=== PATIENT | male | born 1945 | race Caucasian/White ===

== ENCOUNTER 2021-07-08 15:13 | Inpatient (IN) | payer MEDICARE, OTHER ==
[~2021-07-08] VITALS: Ht 172.7 cm; Wt 81.6 kg
[2021-07-08] MEDS ORDERED: NALOXONE PREFILLED SYRINGE 2 MG/2 ML SYRINGE ONE (15:17)
[2021-07-08] MEDS ORDERED: NALOXONE HCL 0.4 MG/ML AMPUL ONE (15:18)
--- NOTE | 2021-07-08 15:25 | NUR ---
PT BIBRA FROM HOME TO ER BED 01, PER EMS REPORT PT WAS FOUND BY FAMILY MEMBER ALTERED, UNRESPONSIVE. ACCUCHECK WAS DONE READING HIGH ON BRUSH WORKER GLUCOMETER. GOWNED PLACED ON MONITOR. 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 PLACED ON NON REBREATHER MASK. DR TAY AT BEDSIDE W/ ORDERS. WILL CARRY OUT.
[2021-07-08] MEDS ORDERED: IV NS 0.9% 1,000 ML BAG IV ONE ×2 (15:30)
[2021-07-08] MEDS ORDERED: NALOXONE HCL 0.4 MG/ML AMPUL IV ONE (15:30)
[2021-07-08 15:41] LABS: ABG BASE EXCESS -25.9 mmol/L; ABG PCO2 24.9 mmHg (35.0-45.0); ABG PH 6.943 (7.350-7.450); ABG PO2 69.7 mmHg (75.0-100.0); COHb 0.3 % (0.5-1.5); MetHb 0.3 % (0.0-1.5); O2Hb 89.1 % (94.0-97.0); SITE, ABG Right Radial; VENT MODE, BG 10 minutes on 4 lpm NC
[2021-07-08 15:48] LABS: BASOPHILS % (AUTO) 0.2 % (0.0-2.0); HEMATOCRIT 46 % (39-51); HEMOGLOBIN 14.2 g/dL (13.5-17.5); LYMPHOCYTES # (AUTO) 0.7 K/uL (0.8-4.8); LYMPHOCYTES % (AUTO) 3.9 % (20.0-44.0); MEAN CORPUSCULAR HGB CONC 31 g/dl (31.0-36.0); MEAN CORPUSCULAR VOLUME 92 fL (80-96); MONOCYTES # (AUTO) 0.9 K/uL (0.1-1.30); MONOCYTES % (AUTO) 5.1 % (2.0-12.0); NEUTROPHILS # (AUTO) 15.3 K/uL (1.8-8.9); NEUTROPHILS % (AUTO) 90.8 % (43.0-81.0); PLATELET COUNT (AUTO) 529 K/uL (150-450); RED BLOOD CELL COUNT(AUTO) 5.04 MIL/uL (4.5-6.0); WHITE BLOOD COUNT (AUTO) 16.9 K/uL (4.3-11.0)
[2021-07-08 15:51] LABS: SERUM AMMONIA 9 umol/L (11-32)
--- NOTE | 2021-07-08 15:54 | NUR ---
PT TO RADIOLOGY FOR HEAD CT SCAN VIA [facility].
[2021-07-08 16:04] LABS: THYROID STIMULATING HORMONE 0.776 uIU/mL (0.358-3.74)
--- NOTE | 2021-07-08 16:10 | NUR ---
PT RETURNED FROM CT SCAN.
[2021-07-08 16:14] LABS: CALCIUM, SERUM 8.3 mg/dL (8.5-10.1); CHLORIDE 105 mmol/L (98-107); CREATININE 2.4 mg/dL (0.6-1.3); POTASSIUM 4.6 mmol/L (3.5-5.1); SODIUM SERUM 146 mmol/L (136-145); UREA NITROGEN, BLOOD 38 mg/dL (7-18)
[2021-07-08 16:16] LABS: CARBON DIOXIDE 8 mmol/L (21-32); GLUCOSE 639 mg/dL (74-106)
[2021-07-08 16:18] LABS: BILIRUBIN,TOTAL 0.5 mg/dL (0.2-1.0)
[2021-07-08 16:19] LABS: ACETAMINOPHEN < 0 ug/ml (10-30); ALANINE AMINOTRANSFERASE 13 U/L (12-78); ALBUMIN 1.8 g/dL (3.4-5.0); ALCOHOL, BLOOD < 3 mg/dL (0-0); ALKALINE PHOSPHATASE 157 U/L (46-116); ASPARTATE AMINOTRANSFERASE 19 U/L (15-37); BILIRUBIN,DIRECT 0.2 mg/dL (0.0-0.2); TOTAL PROTEIN, SERUM 6.7 g/dL (6.4-8.2)
[2021-07-08] MEDS ORDERED: INSULIN REGULAR, HUMAN 100 UNITS in IV NS 0.9% 100 ML IV PRN (16:30)
[2021-07-08] MEDS ORDERED: IV PREMIX NS +20MEQ KCL 1,000 L IV PRN (16:30)
--- NOTE | 2021-07-08 16:42 | NUR ---
COVID ANTIGEN SWAB COLLECTED AND GIVE TO LAB
[2021-07-08 17:25] LABS: CALCIUM, SERUM 7.1 mg/dL (8.5-10.1); CHLORIDE 111 mmol/L (98-107); CREATININE 2.1 mg/dL (0.6-1.3); POTASSIUM 4.4 mmol/L (3.5-5.1); SODIUM SERUM 148 mmol/L (136-145); UREA NITROGEN, BLOOD 36 mg/dL (7-18)
[2021-07-08 17:27] LABS: CARBON DIOXIDE 10 mmol/L (21-32); GLUCOSE 554 mg/dL (74-106)
[2021-07-08 17:29] LABS: MAGNESIUM 2.6 mg/dL (1.8-2.4); PHOSPHORUS 8.4 mg/dL (2.5-4.9)
[2021-07-08] MEDS ORDERED: MAGNESIUM HYDROXIDE 30 ML UDC PO PRN (17:30)
[2021-07-08] MEDS ORDERED: ONDANSETRON HCL/PF 4 MG/2 ML VIAL IVP PRN (17:30)
[2021-07-08] MEDS ORDERED: IV NS 0.9% 1,000 ML IV PRN ×2 (17:30→17:40)
[2021-07-08] MEDS ORDERED: ACETAMINOPHEN 325 MG TABLET PO PRN (17:30)
[2021-07-08] MEDS ORDERED: ENOXAPARIN SODIUM 40 MG/0.4 ML DISP.SYRIN SQ SCH (17:30)
[2021-07-08] MEDS ORDERED: CEFEPIME 1 GM in IV D5W 50 ML IV SCH (17:30)
[2021-07-08] MEDS ORDERED: MAG HYDROX/AL HYDROX/SIMETH 30 ML UDC PO PRN (17:30)
[2021-07-08] MEDS ORDERED: LORAZEPAM INJ 2 MG/ML VIAL IV PRN (17:30)
[2021-07-08] MEDS ORDERED: MORPHINE SULFATE INJ 2 MG/ML DISP.SYRIN IV PRN (17:30)
--- NOTE | 2021-07-08 17:37 | NUR ---
PHOSPHORUS 8.4; NOTIFIED SHELLY MCDANIELS
[2021-07-08 17:54] LABS: BILIRUBIN,URINE SMALL (NEGATIVE); COLOR,URINE YELLOW (YELLOW); LEUKOCYTE ESTERASE ,URINE NEGATIVE (NEGATIVE); NITRITE, URINE NEGATIVE (NEGATIVE); PH,URINE 5.5 (5.0-8.0); PROTEIN,URINE 30 mg/dl (NEGATIVE); UGLUCOSE >=1000 mg/dL (NEGATIVE); UROBILINOGEN,URINE 0.2 EU/dL (0.2)
[2021-07-08] MEDS ORDERED: PANTOPRAZOLE 40 MG VIAL ONE (17:56)
[2021-07-08] MEDS: PANTOPRAZOLE 40 MG VIAL IV SCH (17:57)
--- NOTE | 2021-07-08 18:00 | NUR ---
U/S TECH AT BEDSIDE FOR RENAL ULTRASOUND
[2021-07-08 18:22] LABS: BACTERIA,URINE Moderate /HPF (None Seen); HYALINE CASTS, URINE Moderate /LPF (None Seen); SQUAMOUS EPITHELIAL CELL,UR Few /HPF (None Seen); WBC,URINE 0-2 /HPF (0-3)
[2021-07-08] MEDS ORDERED: Z GUARD REMEDY 4 OZ OINT TP PRN (18:30)
[2021-07-08] MEDS ORDERED: CEFEPIME 0.5 GM in IV D5W 50 ML IV SCH (18:30)
[2021-07-08] MEDS ORDERED: CEFEPIME 2 GM in IV D5W 100 ML IV ONE (19:00)
[2021-07-08] MEDS: INSULIN REGULAR, HUMAN 100 UNIT in IV NS 0.9% 99 ML IV PRN (19:22)
--- NOTE | 2021-07-08 19:23 | NUR ---
REPORT GIVEN VITALIY GODFREY FOR MAL.
[2021-07-08 20:29] LABS: CHLORIDE 123 mmol/L (98-107); CREATININE 1.7 mg/dL (0.6-1.3); GLUCOSE 312 mg/dL (74-106); MAGNESIUM 2.1 mg/dL (1.8-2.4); SODIUM SERUM 152 mmol/L (136-145); UREA NITROGEN, BLOOD 35 mg/dL (7-18)
[2021-07-08 20:32] LABS: POTASSIUM 7.2 mmol/L (3.5-5.1)
[2021-07-08 20:33] LABS: CALCIUM, SERUM 5.9 mg/dL (8.5-10.1); CARBON DIOXIDE 7 mmol/L (21-32)
--- NOTE | 2021-07-08 20:33 | NUR ---
CRITICAL: BICARB 7, K+ 7.2, calcium 5.9
--- NOTE | 2021-07-08 20:35 | NUR ---
PAGED DR STEVE FOR CRITICALS
--- NOTE | 2021-07-08 20:55 | NUR ---
DR STEVE RETURNED CALLED, UPDATED ON PT CRITICALS
[2021-07-08] MEDS ORDERED: CEFEPIME 1 GM VIAL ONE (20:59)
[2021-07-08] MEDS ORDERED: HEPARIN SODIUM, PORCINE 5000 UNITS/1 ML VIAL ONE (21:32)
[2021-07-08] MEDS: HEPARIN SODIUM, PORCINE 5000 UNITS/1 ML VIAL SQ SCH (21:34)
[2021-07-08 23:42] LABS: CALCIUM, SERUM 7.5 mg/dL (8.5-10.1); CARBON DIOXIDE 16 mmol/L (21-32); CHLORIDE 120 mmol/L (98-107); CREATININE 2.1 mg/dL (0.6-1.3); GLUCOSE 90 mg/dL (74-106); SODIUM SERUM 155 mmol/L (136-145); UREA NITROGEN, BLOOD 39 mg/dL (7-18)
[2021-07-09] VITALS (16 sets, daily range): BP systolic 81–147; BP diastolic 46–85
--- NOTE | 2021-07-09 01:11 | NUR ---
PT BS NOTED AT 76, STOPPED INSULIN DRIP
[2021-07-09] MEDS ORDERED: IV PREMIX D5 1/2NS + KCL 1,000 ML IV ONE (05:05)
[2021-07-09] MEDS: Potassium Chloride 20 MEQ in IV D5/0.45 NACL 1,000 ML IV PRN ×3 (05:20→19:43)
--- NOTE | 2021-07-09 06:14 | NUR ---
DR. DUGAN ORDERED ABG STAT
[2021-07-09 06:27] LABS: ABG BASE EXCESS -19.6 mmol/L; ABG PCO2 31.1 mmHg (35.0-45.0); ABG PH 7.086 (7.350-7.450); ABG PO2 76.6 mmHg (75.0-100.0); COHb 0.3 % (0.5-1.5); MetHb 0.4 % (0.0-1.5); O2Hb 93.3 % (94.0-97.0); SITE, ABG Left Radial; VENT MODE, BG 15 LNRB
--- NOTE | 2021-07-09 06:32 | NUR ---
PT PULLED OUT HIS BOTH LINES. NEW IV LINE STARTED ON LAC , BLOOD DRAWN AND SENT TO LAB. ANOTHER 20G IV LINE STARTED ON ORTEGA W/ GOOD BLOOD DRAW. PT ALSO NOTD W/ LOW O2 SAT AND INCREASED CIONFUSION. DR DUGAN, ER DR AT BED SIDE SAW THE PT AND ORDERED ABG.
[2021-07-09 06:41] LABS: HEMATOCRIT 42 % (39-51); HEMOGLOBIN 13.3 g/dL (13.5-17.5); LYMPHOCYTES # (AUTO) 0.5 K/uL (0.8-4.8); LYMPHOCYTES % (AUTO) 4.9 % (20.0-44.0); MEAN CORPUSCULAR HGB CONC 32 g/dl (31.0-36.0); MEAN CORPUSCULAR VOLUME 88 fL (80-96); MONOCYTES # (AUTO) 0.5 K/uL (0.1-1.30); MONOCYTES % (AUTO) 4.8 % (2.0-12.0); NEUTROPHILS # (AUTO) 10.1 K/uL (1.8-8.9); NEUTROPHILS % (AUTO) 90.3 % (43.0-81.0); PLATELET COUNT (AUTO) 417 K/uL (150-450); RED BLOOD CELL COUNT(AUTO) 4.75 MIL/uL (4.5-6.0); WHITE BLOOD COUNT (AUTO) 11.2 K/uL (4.3-11.0)
[2021-07-09] MEDS ORDERED: DEXAMETHASONE SOD PHOSPHATE 10 MG/ML VIAL ONE (07:13)
[2021-07-09] MEDS ORDERED: SODIUM BICARBONATE SYR 50 MEQ/50 ML DISP.SYRIN ONE (07:13)
[2021-07-09 07:20] LABS: CALCIUM, SERUM 8.2 mg/dL (8.5-10.1); CARBON DIOXIDE 11 mmol/L (21-32); CHLORIDE 118 mmol/L (98-107); GLUCOSE 147 mg/dL (74-106); MAGNESIUM 2.6 mg/dL (1.8-2.4); POTASSIUM 3.8 mmol/L (3.5-5.1); SODIUM SERUM 154 mmol/L (136-145); UREA NITROGEN, BLOOD 39 mg/dL (7-18)
[2021-07-09] MEDS ORDERED: SODIUM BICARBONATE SYR 50 MEQ/50 ML DISP.SYRIN IV ONE (07:30)
[2021-07-09] MEDS ORDERED: DEXAMETHASONE SOD PHOSPHATE 10 MG/ML VIAL IV ONE (07:30)
[2021-07-09 07:33] LABS: THYROID STIMULATING HORMONE 0.751 uIU/mL (0.358-3.74)
--- NOTE | 2021-07-09 09:02 | NUR ---
ROUSTABOUT HEAD AT BEDSIDE
--- NOTE | 2021-07-09 09:05 | NUR ---
RADIOLOGY AT BEDSIDE
[2021-07-09] MEDS ORDERED: PANTOPRAZOLE 40 MG VIAL ONE (09:06)
[2021-07-09] MEDS ORDERED: HEPARIN SODIUM, PORCINE 5000 UNITS/1 ML VIAL ONE (09:06)
[2021-07-09] MEDS: PANTOPRAZOLE 40 MG VIAL IV SCH (09:28)
[2021-07-09] MEDS: HEPARIN SODIUM, PORCINE 5000 UNITS/1 ML VIAL SQ SCH ×2 (09:31→21:00)
[2021-07-09] MEDS ORDERED: LEVOFLOXACIN 250 MG /D5W 50 ML 250 MG in PREMIX 1 EA IV SCH (10:00)
[2021-07-09 10:28] LABS: ABG BASE EXCESS -10.4 mmol/L; ABG PCO2 31.2 mmHg (35.0-45.0); ABG PH 7.294 (7.350-7.450); ABG PO2 77.4 mmHg (75.0-100.0); COHb 0.3 % (0.5-1.5); MetHb 0.2 % (0.0-1.5); O2Hb 95.8 % (94.0-97.0); SITE, ABG Left Radial; VENT MODE, BG HFNC
[2021-07-09] MEDS ORDERED: LEVOFLOXACIN 750 MG /D5W 150ML 750 MG in PREMIX 1 EA IV SCH (10:30)
--- NOTE | 2021-07-09 10:57 | NUR ---
IV MEDICATIONS INFUSING. PT TOLERATING WELL
--- NOTE | 2021-07-09 10:58 | NUR ---
PT HAS 2 IV LINES. PATENT. MEDICATIONS INFUSING. RAC 18G & LAC 18G
--- NOTE | 2021-07-09 11:55 | NUR ---
REPORT GIVEN TO BEKAH GONZALEZ
--- NOTE | 2021-07-09 12:15 | NUR ---
ADMISSION NOTE PT BROUGHT IN FROM ED VIA GURNEY DISPLAYING MODERATE DISTRESS, PT SEVERELY CONFUSED ON SOFT WRIST RESTRAINTS, STRUGGLING AGAINST STAFF. PT IS BREATHING ON 15L NRB TACHYPNIC. PT TRANSFERRED VIA DRAW SHEET. CRYSTAL CATH AND BEEN DISTRUPTED PRESUMABLY PULLED BY PT, RN WILL CORRECT. PT THEN PLACED ON HIGH FLOW NC, 40/100. R AC L AC 18Gs PATIENT AND INTACT. PT CLEANED, VSS, AFEBRILE. RN WILL START ADMISSION PROCESS SHORTLY.
--- NOTE | 2021-07-09 12:20 | NUR ---
PT TRANSPORTED TO ICU WITH EMT, RN, AND RT
[2021-07-09 12:42] LABS: CALCIUM, SERUM 7.7 mg/dL (8.5-10.1); CARBON DIOXIDE 15 mmol/L (21-32); CHLORIDE 119 mmol/L (98-107); GLUCOSE 134 mg/dL (74-106); POTASSIUM 3.9 mmol/L (3.5-5.1); SODIUM SERUM 153 mmol/L (136-145); UREA NITROGEN, BLOOD 37 mg/dL (7-18)
[2021-07-09 15:53] LABS: CALCIUM, SERUM 7.5 mg/dL (8.5-10.1); CARBON DIOXIDE 16 mmol/L (21-32); CHLORIDE 119 mmol/L (98-107); CREATININE 1.8 mg/dL (0.6-1.3); GLUCOSE 118 mg/dL (74-106); SODIUM SERUM 152 mmol/L (136-145); UREA NITROGEN, BLOOD 37 mg/dL (7-18)
[2021-07-09 17:20] LABS: CALCIUM, SERUM 7.7 mg/dL (8.5-10.1); CARBON DIOXIDE 16 mmol/L (21-32); CHLORIDE 118 mmol/L (98-107); CREATININE 1.8 mg/dL (0.6-1.3); GLUCOSE 151 mg/dL (74-106); POTASSIUM 4.1 mmol/L (3.5-5.1); SODIUM SERUM 151 mmol/L (136-145); UREA NITROGEN, BLOOD 38 mg/dL (7-18)
[2021-07-09] MEDS: BLOOD SUGAR DIAGNOSTIC 1 EACH STRIP IN SCH ×6 (18:12→23:03)
--- NOTE | 2021-07-09 19:20 | NUR ---
RN NOTES PT FOUND SEMI FOWLERS DISPLAYING NO S/S OF ACUTE DISTRESS, PT BREATHING EVEN AND MINIMAL LABOR ON 15L NRB AND HIGH FLOW NC 40/100. PT CONTINUES TO BE CONFUSED BUT NOT RESTLESS. BILATERAL SOFT RESTAINTS APPLIED, PULSES PALPATED AND CAP REFILL < 3 SECONDS BILATERALLY. CRYSTAL CATH BELOW PATIENT DRAINING BY GRAVITY. SBAR AND REPORT GIVEN TO CAFETERIA COOK RN, ALL QUESTIONS ANSWERED. SAFETY MEASURES IN PLACE, BED LOCKED AND IN LOWEST POSITION, SIDE RAILS UPX3, CALL LIGHT WITHIN REACH, BED ALARM ARMED. PT ENDORSED IN STABLE CONDITION FOR MAL.
[2021-07-09] MEDS: CEFEPIME 1 GM in IV D5W 50 ML IV SCH (19:43)
--- NOTE | 2021-07-09 23:42 | NUR ---
RN NOTE CALLED LAB REGARDING NO RESULT FOR BMP FROM 2099, SPOKE WITH NICKI WHO IS STILL RUNNING THEM NO RESULTS AT THIS TIME
[2021-07-09 23:55] LABS: CALCIUM, SERUM 7.6 mg/dL (8.5-10.1); CARBON DIOXIDE 16 mmol/L (21-32); CHLORIDE 118 mmol/L (98-107); GLUCOSE 211 mg/dL (74-106); POTASSIUM 4.2 mmol/L (3.5-5.1); SODIUM SERUM 150 mmol/L (136-145)
[2021-07-09 23:56] LABS: CREATININE 1.8 mg/dL (0.6-1.3); UREA NITROGEN, BLOOD 36 mg/dL (7-18)
[2021-07-10] VITALS (36 sets, daily range): BP systolic 58–136; BP diastolic 40–93
[2021-07-10] MEDS: BLOOD SUGAR DIAGNOSTIC 1 EACH STRIP IN SCH ×13 (00:08→18:07)
[2021-07-10] MEDS ORDERED: ACETAMINOPHEN 650 MG/SUPP.RECT RC PRN (00:30)
[2021-07-10] MEDS: INSULIN REGULAR, HUMAN 100 UNIT in IV NS 0.9% 99 ML IV PRN (01:37)
[2021-07-10 02:11] LABS: CALCIUM, SERUM 7.7 mg/dL (8.5-10.1); CARBON DIOXIDE 20 mmol/L (21-32); CHLORIDE 119 mmol/L (98-107); CREATININE 1.8 mg/dL (0.6-1.3); GLUCOSE 209 mg/dL (74-106); POTASSIUM 3.9 mmol/L (3.5-5.1); SODIUM SERUM 152 mmol/L (136-145); UREA NITROGEN, BLOOD 34 mg/dL (7-18)
--- NOTE | 2021-07-10 03:30 | NUR ---
TITRATE O2 TO 80% , BEKAH BOSE NOTIFIED. SPO2 97%, WILL CONTINUE TO MONITOR T/O SHIFT
--- NOTE | 2021-07-10 03:30 | NUR ---
RN NOTE-RT PT TITRATED FIO2 80% PT HAS BEEN SATURATING 95-100% CONSISTENTLY
[2021-07-10] MEDS: Potassium Chloride 20 MEQ in IV D5/0.45 NACL 1,000 ML IV PRN ×2 (03:57→15:10)
[2021-07-10] MEDS ORDERED: INSULIN REGULAR, HUMAN 100 UNIT/ML 3 ML VIAL ONE (04:29)
--- NOTE | 2021-07-10 04:30 | NUR ---
INCREASED O2 BACK TO 100% DUE TO DESATURATION W/ THE SPO2 OF 78% . BEKAH BOSE AWARE. WILL CONTINUE TO MONITOR PT T/O SHIFT
[2021-07-10 05:20] LABS: BASOPHILS % (AUTO) 0.2 % (0.0-2.0); EOSINOPHILS % (AUTO) 0.1 % (0.0-6.0); HEMATOCRIT 39 % (39-51); HEMOGLOBIN 12.7 g/dL (13.5-17.5); LYMPHOCYTES # (AUTO) 0.6 K/uL (0.8-4.8); LYMPHOCYTES % (AUTO) 4.4 % (20.0-44.0); MEAN CORPUSCULAR HGB CONC 33 g/dl (31.0-36.0); MEAN CORPUSCULAR VOLUME 86 fL (80-96); MONOCYTES # (AUTO) 0.2 K/uL (0.1-1.30); MONOCYTES % (AUTO) 1.8 % (2.0-12.0); NEUTROPHILS # (AUTO) 12.7 K/uL (1.8-8.9); NEUTROPHILS % (AUTO) 93.5 % (43.0-81.0); PLATELET COUNT (AUTO) 315 K/uL (150-450); RED BLOOD CELL COUNT(AUTO) 4.54 MIL/uL (4.5-6.0); WHITE BLOOD COUNT (AUTO) 13.6 K/uL (4.3-11.0)
[2021-07-10 05:37] LABS: CALCIUM, SERUM 7.8 mg/dL (8.5-10.1); CARBON DIOXIDE 13 mmol/L (21-32); CHLORIDE 120 mmol/L (98-107); CREATININE 1.6 mg/dL (0.6-1.3); GLUCOSE 142 mg/dL (74-106); SODIUM SERUM 149 mmol/L (136-145); UREA NITROGEN, BLOOD 32 mg/dL (7-18)
--- NOTE | 2021-07-10 06:46 | NUR ---
RN NOTE CLOSING PT HAD 2 EPISODES THIS SHIFT DESATURATING TO 80%. AT THIS TIME PT REMAINS ON 40L 100% O2 SAT 88% PT LYING ON RIGHT SIDE. STILL REMAINS SINUS TACH 118 AND TACHYPNEIC. PT STILL ON INSULIN DRIP DKA PROTOCOL USING ALGORITHM #2 ORDERED. PT ANION GAP IS 21, PT RECEIVING FLUIDS D51/2 NS WITH 20MEQ KCL. NO S/S OF INFILTRATION. PT NEEDS ATTENDED. SAFETY MEASURES IN PLACE. WILL ENDORSE TO DAY SHIFT FOR CONTINUATION OF CARE
--- NOTE | 2021-07-10 07:27 | NUR ---
WOUND CARE CONSULT: REVIEWED CHART, NURSING DOCUMENTATION AND PHOTOS WHICH INDICATE DRY ABRASIONS AND SCABS, PRESENT ON ADMISSION. RECOMMENDATIONS MADE FOR SKIN PROTECTION. DISCUSSED WITH NURSING STAFF. MD IN AGREEMENT WITH PLAN OF CARE.
--- NOTE | 2021-07-10 07:30 | NUR ---
RN NOTES PT FOUND SEMI FOWLERS DISPLAYING NO S/S OF ACUTE DISTRESS, PT BREATHING EVEN AND MINIMAL LABOR ON 15L NRB AND HIGH FLOW NC 40/100. CONFUSION CONTINUES, RESTLESS REDUCED. BILATERAL SOFT RESTAINTS APPLIED, PULSES PALPATED AND CAP REFILL < 3 SECONDS BILATERALLY. CRYSTAL CATH BELOW PATIENT DRAINING BY GRAVITY. VSS, RN WILL MONITOR AND TREAT THROUGHOUT SHIFT. SAFETY MEASURES IN PLACE, BED LOCKED AND IN LOWEST POSITION, SIDE RAILS UPX3, CALL LIGHT WITHIN REACH, BED ALARM ARMED. PT ENDORSED IN STABLE CONDITION FOR MAL.
--- NOTE | 2021-07-10 07:50 | NUR ---
MD VISIT DR MELTON DID ROUNDS. RN SPOKE TO MD ABOUT PLAN OF CARE MOVING FORWARD. MD GAVE ORDERS: REDUCE D5 KCL 1/2NS FROM 150ML/HR TO 100 ML/HR. RN ACKNOWLEDGE AND WILL ENTER ORDER DIRECTED.
[2021-07-10 08:41] LABS: BAND % (MANUAL) 23 % (0.0-5.0); LYMPHOCYTES % (MANUAL) 7 % (16-48); METAMYELOCYTES % 4 % (0-0); MONOCYTES % (MANUAL) 2 % (0-11.0); MYELOCYTES % 2 % (0-0); NEUTROPHILS % (MANUAL) 62 (42-76)
[2021-07-10 09:06] LABS: ABG BASE EXCESS -7.7 mmol/L; ABG OXYGEN SATURATION 91.3 % (92.0-98.5); ABG PCO2 34.3 mmHg (35.0-45.0); ABG PH 7.323 (7.350-7.450); ABG PO2 59.1 mmHg (75.0-100.0); AaDO2 619.6 mmHg; MetHb 0.1 % (0.0-1.5); O2Hb 91.2 % (94.0-97.0); SITE, ABG Right Radial; VENT MODE, BG HFNC 100% + NRB
[2021-07-10] MEDS: DEXAMETHASONE SOD PHOSPHATE 10 MG/ML VIAL IV SCH (09:14)
[2021-07-10] MEDS: PANTOPRAZOLE 40 MG VIAL IV SCH (09:14)
[2021-07-10] MEDS: HEPARIN SODIUM, PORCINE 5000 UNITS/1 ML VIAL SQ SCH ×2 (09:19→20:31)
[2021-07-10 09:57] LABS: CARBON DIOXIDE 20 mmol/L (21-32); CHLORIDE 120 mmol/L (98-107); CREATININE 1.7 mg/dL (0.6-1.3); GLUCOSE 175 mg/dL (74-106); POTASSIUM 3.9 mmol/L (3.5-5.1); SODIUM SERUM 150 mmol/L (136-145); UREA NITROGEN, BLOOD 32 mg/dL (7-18)
--- NOTE | 2021-07-10 10:00 | NUR ---
RN NOTE TRAIL RUN OF SOFT RESTAINTS REMOVAL STARTED. PT IS CALM AND COOPERATIVE.
--- NOTE | 2021-07-10 11:00 | NUR ---
MD COMMUNICATION RN INFORMED DR MELTON OF CLOSED ANION GAP (11.4). GAVE ORDERS, D/C INSULIN DRIP, MODERATE ISS Q6H. RN ACKNOWLEDGED AND WILL ENTER ORDERS DIRECTED.
[2021-07-10] MEDS ORDERED: DEXTROSE 50%-WATER 50 ML DISP.SYRIN IV PRN (11:30)
[2021-07-10] MEDS: INSULIN REGULAR, HUMAN 100 UNIT/ML 3 ML VIAL SQ PRN ×2 (12:42→18:12)
--- NOTE | 2021-07-10 15:29 | NUR ---
SS consult requested. SW will follow up at a later time.
--- NOTE | 2021-07-10 17:00 | NUR ---
RN NOTE PT FOUND REMOVING RNB, THIS WAS AFTER PT WAS PREVIOUSLY WARNED THAT ONE MORE REMOVAL WOULD RESULT IN REAPPLICATION OF SOFT WRISTS. BILATERAL SOFT WRISTS APPLIED, PULSES PALPATED AND CAP REFILL < 3 SECONDS BILATERALLY. Addendum: 07/10/21 at 1922 by LISA RYAN RN NRB, NOT RNB
--- NOTE | 2021-07-10 19:20 | NUR ---
RN NOTES PT FOUND SEMI FOWLERS DISPLAYING NO S/S OF ACUTE DISTRESS, PT BREATHING EVEN AND MINIMAL LABOR ON 15L NRB AND HIGH FLOW NC 40/100. CONFUSION CONTINUES. BILATERAL SOFT RESTAINTS APPLIED, PULSES PALPATED AND CAP REFILL < 3 SECONDS BILATERALLY. CRYSTAL CATH BELOW PATIENT DRAINING BY GRAVITY. SBAR AND REPORT GIVEN TO VICE CHANCELLOR RN, ALL QUESTIONS ANSWERED. SAFETY MEASURES IN PLACE, BED LOCKED AND IN LOWEST POSITION, SIDE RAILS UPX3, CALL LIGHT WITHIN REACH, BED ALARM ARMED. PT ENDORSED IN STABLE CONDITION FOR MAL.
--- NOTE | 2021-07-10 20:00 | NUR ---
ICU NOTES Received patient awake alert non verbal restless on HF 40L 100% FIO2 and 15L NRB mask tachypiec 29-hi 30's.Desat to low 80's.Tachycardic 100's.Afebrile.Turned and repositioned semi fowlers.With bilateral soft wrist restraints on for safety.Patient tried to remove NRB mask and NC.FC to gravity.NPO status.IVF infusing well.Continue monitoring.
[2021-07-10] MEDS: CEFEPIME 1 GM in IV D5W 50 ML IV SCH (20:30)
[2021-07-10 22:24] LABS: ABG BASE EXCESS -8.2 mmol/L; ABG PCO2 41.5 mmHg (35.0-45.0); ABG PH 7.263 (7.350-7.450); ABG PO2 39.2 mmHg (75.0-100.0); AaDO2 632.3 mmHg; COHb 0.1 % (0.5-1.5); MetHb 0.3 % (0.0-1.5); O2Hb 75.7 % (94.0-97.0); SITE, ABG Right Radial; VENT MODE, BG HF+NONREBREATHER
--- NOTE | 2021-07-10 22:45 | NUR ---
ICU NOTES Patient remains restless,tachycardic 120's,tachypniec 50's and desaturating to low 70's. ABG done results relayed to with order to intubate.ABG'S pH=7.263,pCO2= 41.5, pO2= 39.2,HCO3= 18.3 Prep for intubation.
--- NOTE | 2021-07-10 23:08 | NUR ---
ICU NOTES 2303 Patient premedicated with Rocuronium 80 mg and Etomidate 8 mg iv. 2308 Patient intubated by .Stat CXR ordered.
--- NOTE | 2021-07-10 23:08 | NUR ---
DUE TO POST ABG, PT WAS ORALLY INTUBATED WITH 7.5 ETT SECURED @ 24 CM LIP LINE ON VENT WITH THE SETTINGS OF AC 20, VT 500, PEEP 5, FIO2 100%. POSITVE COLOR CHANGED ON CO2 DETECTOR. EQUAL BILATERAL CHEST RISE NOTED. SUCTIONED SMALL AMOUNT OF WHITE THIN SECRETIONS. VENT PLUGGED INTO RED OUTLET, VENT ALARMS ON AND AUDIBLE. WILL CONTINUE TO MONITOR T/O THE SHIFT.
[2021-07-10] MEDS: PROPOFOL 100 ML IV PRN (23:30)
[2021-07-11] VITALS (88 sets, daily range): BP systolic 53–122; BP diastolic 21–78
[2021-07-11] MEDS: BLOOD SUGAR DIAGNOSTIC 1 EACH STRIP IN SCH ×4 (00:03→18:40)
[2021-07-11] MEDS: INSULIN REGULAR, HUMAN 100 UNIT/ML 3 ML VIAL SQ PRN ×4 (00:05→18:40)
--- NOTE | 2021-07-11 00:26 | NUR ---
POST INTUBATION , ABG DONE . RESULT GIVEN TO BEKAH WELLS
[2021-07-11 01:47] LABS: ABG PCO2 51.2 mmHg (35.0-45.0); ABG PH 7.194 (7.350-7.450); ABG PO2 60.1 mmHg (75.0-100.0); AaDO2 601.7 mmHg; COHb 0.2 % (0.5-1.5); MetHb 0.2 % (0.0-1.5); O2Hb 89.6 % (94.0-97.0); PEEP,BG 5 cm H2O; SITE, ABG Right Radial; VT, ABG 500 mL
[2021-07-11] MEDS: Potassium Chloride 20 MEQ in IV D5/0.45 NACL 1,000 ML IV PRN ×2 (02:17→16:33)
[2021-07-11] MEDS ORDERED: PHENYLEPHRINE 10 MG/ML VIAL ONE (02:46)
[2021-07-11] MEDS: PHENYLEPHRINE 100 MG in IV NS 0.9% 240 ML IV PRN ×2 (03:08→20:23)
--- NOTE | 2021-07-11 03:10 | NUR ---
ICU NOTES Patient hemodynamically unstable.Started on Erick Synephrine and will titrate accordingly.
--- NOTE | 2021-07-11 03:37 | NUR ---
ICU NOTES Patient ABG results post intubation pH=7.1,pCO2 =51.2,pO2 60.1,HCO3 =19.3 O2 saturation down to mid 80"s AARSLAN Pollard paged at [phone].no response.Called back 2nd time and responded.Notified of above ABG results and BC Gm + in cocci in clusters.Orders received and carried out.
--- NOTE | 2021-07-11 03:59 | NUR ---
INCREASED RESPIRATORY RATE T0 26 PER MD'S ORDER. BEKAH WELLS AWARE. WILL CONTINUE TO MONITOR T/O SHIFT.
[2021-07-11] MEDS ORDERED: VANCOMYCIN HCL 1 GM in IV D5W 260 ML IV ONE (04:00)
[2021-07-11] MEDS ORDERED: VANCOMYCIN 1 GM VIAL ONE (05:11)
[2021-07-11 05:57] LABS: BASOPHILS % (AUTO) 0.1 % (0.0-2.0); HEMATOCRIT 41 % (39-51); LYMPHOCYTES # (AUTO) 0.6 K/uL (0.8-4.8); LYMPHOCYTES % (AUTO) 4.5 % (20.0-44.0); MEAN CORPUSCULAR HGB CONC 32 g/dl (31.0-36.0); MEAN CORPUSCULAR VOLUME 87 fL (80-96); MONOCYTES # (AUTO) 0.2 K/uL (0.1-1.30); MONOCYTES % (AUTO) 1.8 % (2.0-12.0); NEUTROPHILS # (AUTO) 11.9 K/uL (1.8-8.9); NEUTROPHILS % (AUTO) 93.6 % (43.0-81.0); PLATELET COUNT (AUTO) 304 K/uL (150-450); RED BLOOD CELL COUNT(AUTO) 4.71 MIL/uL (4.5-6.0); WHITE BLOOD COUNT (AUTO) 12.7 K/uL (4.3-11.0)
[2021-07-11 05:59] LABS: CARBON DIOXIDE 21 mmol/L (21-32); CHLORIDE 117 mmol/L (98-107); CREATININE 1.8 mg/dL (0.6-1.3); GLUCOSE 290 mg/dL (74-106); POTASSIUM 4.6 mmol/L (3.5-5.1); SODIUM SERUM 148 mmol/L (136-145); UREA NITROGEN, BLOOD 35 mg/dL (7-18)
--- NOTE | 2021-07-11 07:08 | NUR ---
ICU NOTED Patient remains sedated in no acute distress.Bathed and linens changed.Turned and repositioned. Diprivan gtt infusing at 5 mcg,Erick Synephrine gtt at 0.5 mcg and current IVF infusing well.Blood Sugar monitored and coverage given per SS. At 0649 Lab called regarding Lactic Acid 3.5.Paged ARSLAN Lui for orders.Report given to day shift RN for MAL.
--- NOTE | 2021-07-11 07:30 | NUR ---
RN NOTES PT FOUND SEMI FOWLERS DISPLAYING NO S/S OF DISTRESS, FLACC = 0, RIKERS = 3 AND BILATERAL RISE AND FALL OF THE CHEST OBSERVED. PT RESTRAINED, BILATERAL SOFT WRISTS, PULSES PALPATED AND CAP REFILL < 3 SECONDS BILATERALLY. L AC 18G AND R AC 18G IV ARE PATIENT AND INTACT. CRYSTAL CATH BELOW PATIENT DRAINING BY GRAVITY. VSS, RN WILL MONITOR AND TREAT THROUGHOUT SHIFT. SAFETY MEASURES IN PLACE, BED LOCKED AND IN LOWEST POSITION, SIDE RAILS UPX3, CALL LIGHT WITHIN REACH, BED ALARM ARMED.
[2021-07-11] MEDS: DEXAMETHASONE SOD PHOSPHATE 10 MG/ML VIAL IV SCH (08:29)
[2021-07-11] MEDS: PANTOPRAZOLE 40 MG VIAL IV SCH (08:29)
[2021-07-11] MEDS: CEFEPIME 2 GM in IV D5W 100 ML IV SCH ×2 (08:30→20:01)
[2021-07-11] MEDS: HEPARIN SODIUM, PORCINE 5000 UNITS/1 ML VIAL SQ SCH ×2 (08:31→20:30)
[2021-07-11] MEDS ORDERED: ROCURONIUM BROMIDE 50 MG/5 ML IV ONE (09:48)
[2021-07-11] MEDS ORDERED: ETOMIDATE 2 MG/ML VIAL IV ONE (09:48)
[2021-07-11 10:11] LABS: BAND % (MANUAL) 14 % (0.0-5.0); LYMPHOCYTES % (MANUAL) 5 % (16-48); MONOCYTES % (MANUAL) 1 % (0-11.0); NEUTROPHILS % (MANUAL) 80 (42-76)
[2021-07-11] MEDS: PROPOFOL 100 ML IV PRN ×3 (11:58→21:14)
--- NOTE | 2021-07-11 13:05 | NUR ---
SW consult: No Family JAIRO was able to find pt.'s old caregiver contact info [Jayla [phone]], she provided SW with son's contact info [Dylan [phone]]. SW reached out to the contact info provided and left VM.
--- NOTE | 2021-07-11 19:40 | NUR ---
RN NOTES PT FOUND SEMI FOWLERS DISPLAYING NO S/S OF DISTRESS, FLACC = 0, RIKERS = 3 AND BILATERAL RISE AND FALL OF THE CHEST OBSERVED. PT RESTRAINED, BILATERAL SOFT WRISTS, PULSES PALPATED AND CAP REFILL < 3 SECONDS BILATERALLY. L AC 18G AND R AC 18G IV ARE PATIENT AND INTACT. CRYSTAL CATH BELOW PATIENT DRAINING BY GRAVITY. SBAR AND REPORT GIVEN TO IN STORE BANKER RN, ALL QUESTIONS ANSWERED. SAFETY MEASURES IN PLACE, BED LOCKED AND IN LOWEST POSITION, SIDE RAILS UPX3, CALL LIGHT WITHIN REACH, BED ALARM ARMED. PT ENDORSED FOR MAL.
--- NOTE | 2021-07-11 20:00 | NUR ---
ICU NOTES Received patient intubated and sedated on Diprivan gtt at 45 mcg.Continue on same vent settings well tolerated.SR.Afebrile.On MARIVEL Synephrine at 2.4 mcg for BP support and will titrate accordingly. Remain NPO.OGT clamped.Oral care done.IVF infusing well.FC to gravity drainage.Turned and repositioned.No acute distress noted.
[2021-07-11] MEDS ORDERED: VANCOMYCIN 0.75 GM in IV D5W 250 ML IV SCH (23:00)
[2021-07-12] VITALS (93 sets, daily range): BP systolic 94–146; BP diastolic 58–92
[2021-07-12] MEDS: BLOOD SUGAR DIAGNOSTIC 1 EACH STRIP IN SCH ×5 (00:13→23:41)
[2021-07-12] MEDS: INSULIN REGULAR, HUMAN 100 UNIT/ML 3 ML VIAL SQ PRN ×5 (00:14→23:42)
[2021-07-12] MEDS: PROPOFOL 100 ML IV PRN ×5 (02:38→21:31)
[2021-07-12] MEDS: Potassium Chloride 20 MEQ in IV D5/0.45 NACL 1,000 ML IV PRN ×2 (04:35→15:08)
[2021-07-12] MEDS ORDERED: PHENYLEPHRINE 10 MG/ML VIAL ONE (04:39)
[2021-07-12] MEDS: PHENYLEPHRINE 100 MG in IV NS 0.9% 240 ML IV PRN ×2 (05:41→15:14)
--- NOTE | 2021-07-12 06:44 | NUR ---
ICU NOTES Patient remains sedated intubated on same vent settings tolerating well.VSS.SR.Erick Synephrine gtt titarted per protocol.Diprivan gtt and ivf all infusing well.AM care done.FSBS monitored and covered per SS.No acute distress noted.Turned and repositioned.All due medications administered. No significant change noted during the shift.Will endorse to day shift for MAL.
--- NOTE | 2021-07-12 07:40 | NUR ---
ICU NOTES Received patient intubated and sedated. Pt is on Diprivan at 45 mcg tolerating well, no agitation noted. Pt Vent settings changed by RT FiO2-65, toleratedwell. SR.Afebrile. On MARIVEL Synephrine at 2.4 mcg for BP support, will titrate accordingly. Pt remains NPO.OGT clamped. IVF 0.15%K in Db 1/2NS infusing well. FC in place and draining well to gravity drainage.
[2021-07-12] MEDS: CEFEPIME 2 GM in IV D5W 100 ML IV SCH ×2 (08:17→20:01)
[2021-07-12] MEDS: PANTOPRAZOLE 40 MG VIAL IV SCH (08:32)
[2021-07-12] MEDS: DEXAMETHASONE SOD PHOSPHATE 10 MG/ML VIAL IV SCH (08:36)
[2021-07-12] MEDS: HEPARIN SODIUM, PORCINE 5000 UNITS/1 ML VIAL SQ SCH ×2 (08:52→21:38)
[2021-07-12 09:21] LABS: ABG BASE EXCESS -9.7 mmol/L; ABG OXYGEN SATURATION 96.3 % (92.0-98.5); ABG PCO2 30.2 mmHg (35.0-45.0); ABG PH 7.317 (7.350-7.450); ABG PO2 76.7 mmHg (75.0-100.0); AaDO2 353.9 mmHg; COHb 0.3 % (0.5-1.5); MetHb 0.3 % (0.0-1.5); O2Hb 95.7 % (94.0-97.0); PEEP,BG 8 cm H2O; SITE, ABG Right Femoral; VT, ABG 520 mL
--- NOTE | 2021-07-12 12:46 | NUR ---
et tube adjusted from 23 cm to [address] thomas. Addendum: 07/12/21 at 1247 by FELIPE PARDO RT Amended: Links added.
[2021-07-12 19:12] LABS: CALCIUM, SERUM 7.6 mg/dL (8.5-10.1); CARBON DIOXIDE 15 mmol/L (21-32); CHLORIDE 115 mmol/L (98-107); CREATININE 2.5 mg/dL (0.6-1.3); POTASSIUM 4.4 mmol/L (3.5-5.1); SODIUM SERUM 144 mmol/L (136-145); UREA NITROGEN, BLOOD 56 mg/dL (7-18)
[2021-07-12 19:16] LABS: GLUCOSE 354 mg/dL (74-106)
--- NOTE | 2021-07-12 19:46 | NUR ---
ICU NOTES patient intubated and sedated. Pt is on Diprivan at 45 mcg tolerating well, no agitation noted. Pt Vent settings tolerated well. SR.Afebrile. On MARIVEL Synephrine at 2 mcg for BP support titrated from 2.3 from start of shift. endorsed to next shift rn. Pt remains NPO.OGT clamped. IVF 0.15%K in Db 1/2NS infusing well. FC in place and draining well to gravity drainage.
--- NOTE | 2021-07-12 20:00 | NUR ---
ICU NOTES Received patient intubated on mechanical vent.Continue on same vent settings.O2 saturation 93%-98%. VSS.SR.No acute distress noted.Sedated on Diprivan gtt at 45 mcg.IVF D51/2 + kcl 20 meq infusing well and Erick Synephrine for BP support and will titrate accordingly.OGT clamped npo status.FC to gravity drainage.Turned and repositioned.No acute distress noted.Continue monitoring.
--- NOTE | 2021-07-12 20:00 | NUR ---
RN NOTE RECEIVED CALL FROM LAB OF CRITICAL VALUE OF BLOOD GLUCOSE 354MG/DL. PT WAS ALREADY GIVEN 8UNIT OF REGULAR INSULIN. ENDORSED TO NEXT RN. PT IS ON ACCU CHECK Q6HRS.
[2021-07-12] MEDS: INSULIN GLARGINE, 100 UNIT/ML CARTRIDGE SQ SCH (21:37)
[2021-07-12] MEDS ORDERED: SODIUM BICARBONATE SYR 50 MEQ/50 ML DISP.SYRIN ONE (23:40)
[2021-07-12] MEDS: Sodium Bicarbonate 50 MEQ in IV 1/2NS 1000 ML 1,000 ML IV SCH (23:53)
[2021-07-13] VITALS (85 sets, daily range): BP systolic 47–120; BP diastolic 29–77
--- NOTE | 2021-07-13 | NUR ---
ICU NOTES. Patient remains sedated in no acute distress.Tolerating vent settings well.Oral care and secretions suctioned.Turned and repositioned.Blood sugar monitored q 6 hrs cover with RI per SS.
[2021-07-13] MEDS: PROPOFOL 100 ML IV PRN ×5 (02:59→21:16)
[2021-07-13] MEDS: PHENYLEPHRINE 100 MG in IV NS 0.9% 240 ML IV PRN ×2 (04:52→19:45)
[2021-07-13] MEDS: INSULIN REGULAR, HUMAN 100 UNIT/ML 3 ML VIAL SQ PRN (05:27)
[2021-07-13 05:48] LABS: ABG OXYGEN SATURATION 95.3 % (92.0-98.5); ABG PCO2 33.5 mmHg (35.0-45.0); ABG PH 7.304 (7.350-7.450); ABG PO2 73.9 mmHg (75.0-100.0); AaDO2 353.1 mmHg; COHb 0.1 % (0.5-1.5); O2Hb 95.2 % (94.0-97.0); PEEP,BG 8 cm H2O; SITE, ABG Right Radial; VENT MODE, BG AC 30; VT, ABG 520 mL
--- NOTE | 2021-07-13 06:30 | NUR ---
ICU NOTES Patient vital signs remains stable.Due medications adminstered.AM care done.No significant changes noted during the night.Maintained on Diprivan gtt at 45 mcg, NeoSynephrine gtt titrated down to 1.6 mcg and IVF changed to 1/2 NS with 1 amp Sodium Bicarb as ordered.Turned and repositioned to comfort.No acute distress noted. Will endorse to day shift for MAL.
[2021-07-13] MEDS: BLOOD SUGAR DIAGNOSTIC 1 EACH STRIP IN SCH ×4 (06:33→23:24)
[2021-07-13 07:03] LABS: CARBON DIOXIDE 19 mmol/L (21-32); CHLORIDE 116 mmol/L (98-107); CREATININE 2.5 mg/dL (0.6-1.3); GLUCOSE 154 mg/dL (74-106); POTASSIUM 4.4 mmol/L (3.5-5.1); SODIUM SERUM 146 mmol/L (136-145); UREA NITROGEN, BLOOD 51 mg/dL (7-18)
--- NOTE | 2021-07-13 08:00 | NUR ---
RN NOTES SEEN PATIENT ETT/VENT TOLERATING WELL, FIO2-65, PEEP-5 , PATIENT ON SEDATION DIPRIVAN 45MCG.KG/GHR, MARIVEL 1.6 MCG/KG/HR, AND BICARB ONE AMP WITH ARACELY NS @80ML/HR ON INTACT . OGT INTACT. KEEP HOB ELEVATED FOR ASPIRATION PRECAUTION. SUCTION VIA RT AT THIS TIME WITH THE PATIENT. ASSIST TURN A D REPOSTION. PATIENT HAS DECOLORATION OF LEFT LOWER EXTREMITIES, COOL TO TOUCH. NOTIFIED HOSPITALIST, AND GET STAT ORDER BLE US ARTERIAL DOPPLER, AND VASCULAR MD CONSUL Dr GARCIA. ORDER TAKEN AND CARRIED OUT. RECHECKED SOFT WRIST RESTRAIN BILATERAL, CHECKED CIRCULATION. WILL FOLLOW UP.
--- NOTE | 2021-07-13 09:00 | NUR ---
RN NOTES SEEN PATIENT VIA ECHOCARDIOGRAPH TECH DR AGGARWAL , AND GET NEW ORDERS ARE SEDATION VACATION, START FEEDING GLUCERNA 1.2 @ 20ML/HR. ORDER TAKEN AND CARRIED OUT.
[2021-07-13] MEDS: DEXAMETHASONE SOD PHOSPHATE 10 MG/ML VIAL IV SCH (09:44)
[2021-07-13] MEDS: HEPARIN SODIUM, PORCINE 5000 UNITS/1 ML VIAL SQ SCH ×2 (09:45→21:37)
[2021-07-13] MEDS: PANTOPRAZOLE 40 MG VIAL IV SCH (09:46)
--- NOTE | 2021-07-13 10:00 | NUR ---
rn notes titrated up sedation because patient breathing through the ventilator a/c 36 , psv 41. Seen hospitalist no new orders. will follow up.
[2021-07-13 11:16] LABS: BILIRUBIN,DIRECT 0.1 mg/dL (0.0-0.2); BILIRUBIN,TOTAL 0.2 mg/dL (0.2-1.0); TOTAL PROTEIN, SERUM 5.6 g/dL (6.4-8.2)
[2021-07-13 11:19] LABS: ALBUMIN 0.9 g/dL (3.4-5.0)
[2021-07-13] MEDS: Sodium Bicarbonate 50 MEQ in IV 1/2NS 1000 ML 1,000 ML IV SCH ×2 (11:50→23:38)
[2021-07-13] MEDS: GLUCERNA 1.2 1,000 ML BOTTLE NG PRN (13:58)
--- NOTE | 2021-07-13 16:00 | NUR ---
RN NOTES PATIENT GETTING BLE ARTERIAL US AT THIS TIME, NO RIGHT FOOT CIRCULATION, NO PULSE.
--- NOTE | 2021-07-13 18:40 | NUR ---
RN NOTES PM CARE DONE,SUCTION, MOUTH CARE, PATIENT HAS NO ACUTE REPARATORY DISTRESS. INFUSING DIPRIVAN 45MCG/KG/HR, MARIVEL 2.5 MCG/KG/HR, AND BICARB ONE AMP NS @80 ML/HR ON RIGHT PICC LINE INTACT, CRYSTAL DRAINED 680ML. ASSIST TURN A D REPOSTION Q 2 HR. ENDORSED ONCOMING NURSE FOLLOW PLAN OF CARE.
--- NOTE | 2021-07-13 19:54 | NUR ---
RN NOTE RECEIVED PATIENT IN BED, SEDATED. ON VENT WITH VENT SETTINGS OF AC:30, VT, 520, FIO2, 65%, AND PEEP OF 5.0. TOLERATING WELL. ON TELE MONITORING SINUS TACHYCARDIA AT THIS TIME. SKIN WARM AND DRY. NOTED WITH RIGHT UPPER ARM PICC LINE, RUNNING SODIUM BICARB AT 80 ML/HR, NEOSYNEPHRINE AT 2.5 MCG, AND DIPRIVAN AT 45 MCG. NOTED WITH OGT, RUNNING GLUCERNA AT 20 ML/HR. MINIMAL RESIDUAL. HOB ELEVATED. NOTED WITH CRYSTAL CATHETER. DRAINING YELLOW URINE. NO HEMATURIA AT THIS TIME. BED LOW, IN LOCKED POSITION CALL LIGHT WITHIN REACH.
[2021-07-13] MEDS: CEFEPIME 2 GM in IV D5W 100 ML IV SCH (20:44)
[2021-07-13] MEDS: INSULIN GLARGINE, 100 UNIT/ML CARTRIDGE SQ SCH (21:38)
[2021-07-14] VITALS (86 sets, daily range): BP systolic 64–199; BP diastolic 35–105
[2021-07-14] MEDS: PROPOFOL 100 ML IV PRN ×4 (00:30→14:42)
[2021-07-14] MEDS: PHENYLEPHRINE 100 MG in IV NS 0.9% 240 ML IV PRN ×2 (05:00→14:38)
[2021-07-14] MEDS ORDERED: PHENYLEPHRINE 10 MG/ML VIAL ONE (05:08)
[2021-07-14] MEDS: BLOOD SUGAR DIAGNOSTIC 1 EACH STRIP IN SCH ×4 (05:31→23:12)
[2021-07-14] MEDS: INSULIN REGULAR, HUMAN 100 UNIT/ML 3 ML VIAL SQ PRN ×3 (05:36→17:19)
--- NOTE | 2021-07-14 06:22 | NUR ---
RN NOTE RECEIVED A CALL FROM ESMER PADGETT. RECOMMENDS ADVANCING OGT BY [address] CM. OBTAINED ORDER FROM DR. COULTER. NEW ORDER NOTED AND CARRIED OUT.
--- NOTE | 2021-07-14 06:32 | NUR ---
RN NOTE OGT ADVANCED FROM 50 CM TO 56 CM AT THE LIP.
[2021-07-14 07:44] LABS: CALCIUM, SERUM 7.2 mg/dL (8.5-10.1); CARBON DIOXIDE 17 mmol/L (21-32); CHLORIDE 111 mmol/L (98-107); CREATININE 2.7 mg/dL (0.6-1.3); GLUCOSE 182 mg/dL (74-106); POTASSIUM 4.7 mmol/L (3.5-5.1); SODIUM SERUM 143 mmol/L (136-145); UREA NITROGEN, BLOOD 57 mg/dL (7-18)
--- NOTE | 2021-07-14 08:00 | NUR ---
RN NOTES RECEIVED PATIENT ETT/VENT SETTING WITH SEDATION OF DIPRIVAN 45MCG/KG/HR INTACT ON RIGHT PICC LINE, ALSO GETTING MARIVEL 2.7 MCG/KG/HR, AND BICARB ONE AMP WITH NS @80ML/HR. RECHECKED RESIDUAL, AND PLACEMENT, ASSIST TURN AND REPOSTION, RECHECKED RESIDUAL. NO OUTPUT FROM CRYSTAL, SEEN PATIENT COMMUNITY LIVING COACH, HOSPITALIST, AND DOCTOR OF AUDIOLOGY Dr AGGARWAL NO SEDATION VACATION TODAY. PATIENT SATURATION 90% TO 92%. WILL FOLLOW UP. PICTURE TAKEN ON RIGHT FOOT, AND SACRAL AREA, RIGHT FOOT COOL TO TOUCH POOR CIRCULATION.
[2021-07-14 08:13] LABS: ABG BASE EXCESS -8.2 mmol/L; ABG OXYGEN SATURATION 93.9 % (92.0-98.5); ABG PCO2 35.4 mmHg (35.0-45.0); ABG PH 7.306 (7.350-7.450); ABG PO2 66.5 mmHg (75.0-100.0); AaDO2 466.7 mmHg; COHb 0.3 % (0.5-1.5); MetHb 0.2 % (0.0-1.5); O2Hb 93.4 % (94.0-97.0); SITE, ABG Right Radial; VENT MODE, BG AC 30 520 80% +8
[2021-07-14] MEDS: PANTOPRAZOLE 40 MG VIAL IV SCH (08:47)
[2021-07-14] MEDS: DEXAMETHASONE SOD PHOSPHATE 10 MG/ML VIAL IV SCH (08:47)
[2021-07-14] MEDS: HEPARIN SODIUM, PORCINE 5000 UNITS/1 ML VIAL SQ SCH (08:50)
[2021-07-14] MEDS: CEFEPIME 2 GM in IV D5W 100 ML IV SCH (08:51)
--- NOTE | 2021-07-14 12:00 | NUR ---
RN NOTES BS-167 MG/DL COVERAGE GIVEN, PATIENT TOLERATING GLUCERNA 1.2 @20ML/HR FEEDING WELL NO RESIDUAL. SEEN VASCULAR MD GARCIA CONSULTATION, GET NEW ORDER HEPARIN DRIP ORDERED PTT STAT. DUE MEDICATION ADMINISTERED. ALSO GET RESULT OF PENDING PCR RESULT WAS POSITIVE. MD NOTIFIED.
[2021-07-14] MEDS: Sodium Bicarbonate 50 MEQ in IV 1/2NS 1000 ML 1,000 ML IV SCH (12:37)
--- NOTE | 2021-07-14 13:26 | NUR ---
RN NOTES GET NEW ORDERS FENTANYL, AND VERSED DRIPS VIA Dr AGGARWAL BECAUSE OF HIGH TRIGLYCERIDE LEVEL IS 792. ORDER TAKEN AND CARRIED OUT.
[2021-07-14] MEDS: MIDAZOLAM HCL 100 MG in IV NS 0.9% 80 ML IV PRN (15:08)
[2021-07-14] MEDS: FENTANYL CITRAT IV 2,500 MCG in IV NS 0.9% 200 ML IV PRN (15:09)
--- NOTE | 2021-07-14 15:09 | NUR ---
RN NOTES STARTED FENTANYL 25MCG/KG/HR, AND VERSED 1 MG/ML/HR AT THIS TIME. WILL TITRATED DIPRIVAN PER PROTOCOL.
[2021-07-14] MEDS ORDERED: HEPARIN SODIUM, PORCINE 5000 UNITS/1 ML VIAL IV ONE (16:00)
[2021-07-14] MEDS: HEPARIN INFUSION/D5W 500 ML IV PRN (17:17)
--- NOTE | 2021-07-14 17:17 | NUR ---
RN NOTES STARTED HEPARIN INFUSION AT THIS TIME 1150U, BLOUSE GIVEN, BS164 MG/DL COVERAGE GIVEN, ASIST TURN A D REPOSITION Q 2 HR, KEEP HOB ELEVATED.
[2021-07-14] MEDS: GLUCERNA 1.2 1,000 ML BOTTLE NG PRN (17:59)
--- NOTE | 2021-07-14 18:45 | NUR ---
RN NOTES PATIENT MILD AGITATED TITRATED UP FENTANYL 100 MCG/KG/HR, , BP -104/56, TITRATED 0.5 MCG/KG/HR, ASSIST TURN AND REPOSTION Q2HR, PATIENT HAS POOR CRYSTAL OUTPUT, KEEP HOB ELEVATED FOR ASPIRATION PRECAUTION. ENDORSED ONCOMING NURSE FOLLOW PLAN OF CARE.
--- NOTE | 2021-07-14 19:30 | NUR ---
RN NOTE PT RECEIVED IN BED. PT IS SEDATED WITH SETTINGS AT AC:30. TV: 520. FIO2: 80%, AND PEEP 10. TOLERATING SETTINGS WELL. ON MARKET RISK MANAGER SHOWING NSR. CRYSTAL CATH NOTED. GLUCERNA 1.2 RUNNING AT 20 CC/HR. TOLERATING WELL WITH NO RESIDUAL NOTED. IV ACCESS NOTED ON RIGHT UPPER ARM PICC LINE AND LEFT UPPER ARM ML. LINE FLUSHED, PATENT, AND INTACT WITH NO SIGNS OF INFILTRATION. MARIVEL DRIP RUNNING AT 1.3 MCG/KG/HR, NA BICARB WITH ONE AMP AT 80CC/HR, AND HEPARIN AT 1150U. ALL SAFETY MEASURES IMPLEMENTED. WILL CONTINUE TO MONITOR AND ASSESS FOR ANY CHANGES DURING SHIFT.
[2021-07-14] MEDS: INSULIN GLARGINE, 100 UNIT/ML CARTRIDGE SQ SCH (23:14)
[2021-07-15] VITALS (80 sets, daily range): BP systolic 50–132; BP diastolic 28–81
[2021-07-15] MEDS: Sodium Bicarbonate 50 MEQ in IV 1/2NS 1000 ML 1,000 ML IV SCH ×2 (01:47→13:56)
--- NOTE | 2021-07-15 02:40 | NUR ---
RN NOTE PAGED EPIC SECOND TIME TRYING TO REACH DIESEL ENGINE ASSEMBLER. NO RESPONSE YET. WILL CONTINUE TO F/U.
--- NOTE | 2021-07-15 03:00 | NUR ---
RN NOTE PAGED EPIC FOR THIRD TIME TRYING TO REACH ONCALL. STILL WAITING TO HEAR BACK. WILL F/U AND REACH OUT TO NURSING SHIATSU THERAPIST.
--- NOTE | 2021-07-15 03:21 | NUR ---
RN NOTE SPOKE WITH DR. WONG REGARDING PTT OF 170 AND PATIENT BEING ON HEPARIN DRIP. PER MARVIN HOLD HEPARIN DRIP FOR NOW AND ORDER PTT AT 0500 AND WE'LL GO BASED OFF NEXT PTT RESULT. ORDER NOTED AND CARRIED OUT.
[2021-07-15] MEDS: BLOOD SUGAR DIAGNOSTIC 1 EACH STRIP IN SCH ×4 (07:00→23:19)
[2021-07-15] MEDS: INSULIN REGULAR, HUMAN 100 UNIT/ML 3 ML VIAL SQ PRN ×4 (07:03→23:21)
[2021-07-15 07:33] LABS: ALANINE AMINOTRANSFERASE 37 U/L (12-78); ALKALINE PHOSPHATASE 127 U/L (46-116); ASPARTATE AMINOTRANSFERASE 88 U/L (15-37); BILIRUBIN,TOTAL 0.3 mg/dL (0.2-1.0); CALCIUM, SERUM 7.4 mg/dL (8.5-10.1); CARBON DIOXIDE 17 mmol/L (21-32); CHLORIDE 109 mmol/L (98-107); GLUCOSE 191 mg/dL (74-106); POTASSIUM 5.2 mmol/L (3.5-5.1); SODIUM SERUM 141 mmol/L (136-145); TOTAL PROTEIN, SERUM 5.6 g/dL (6.4-8.2); UREA NITROGEN, BLOOD 79 mg/dL (7-18)
[2021-07-15 07:36] LABS: BASOPHILS % (AUTO) 0.1 % (0.0-2.0); EOSINOPHILS % (AUTO) 0.1 % (0.0-6.0); HEMATOCRIT 33 % (39-51); HEMOGLOBIN 10.6 g/dL (13.5-17.5); LYMPHOCYTES # (AUTO) 0.8 K/uL (0.8-4.8); MEAN CORPUSCULAR HGB CONC 32 g/dl (31.0-36.0); MEAN CORPUSCULAR VOLUME 86 fL (80-96); MONOCYTES # (AUTO) 0.2 K/uL (0.1-1.30); MONOCYTES % (AUTO) 1.1 % (2.0-12.0); NEUTROPHILS # (AUTO) 18.5 K/uL (1.8-8.9); NEUTROPHILS % (AUTO) 94.7 % (43.0-81.0); PLATELET COUNT (AUTO) 248 K/uL (150-450); RED BLOOD CELL COUNT(AUTO) 3.86 MIL/uL (4.5-6.0); WHITE BLOOD COUNT (AUTO) 19.5 K/uL (4.3-11.0)
[2021-07-15] MEDS: PHENYLEPHRINE 100 MG in IV NS 0.9% 240 ML IV PRN (07:37)
--- NOTE | 2021-07-15 07:54 | NUR ---
RN NOTE NO SIGNIFICANT CHANGES IN PT CONDITION DURING SHIFT. PT IS SEDATED WITH SETTINGS AT AC:30. TV: 520. FIO2: 80%, AND PEEP 10. TOLERATING SETTINGS WELL. ON FLOOR ATTENDANT SHOWING NSR. GLUCERNA 1.2 RUNNING AT 20 CC/HR. TOLERATING WELL WITH NO RESIDUAL NOTED. IV ACCESS NOTED ON RIGHT UPPER ARM PICC LINE AND LEFT UPPER ARM ML. LINE FLUSHED, PATENT, AND INTACT WITH NO SIGNS OF INFILTRATION. HEPARIN DRIP STOPPED FOR NOW DUE TO MD ORDER AND PTT BEING 170. ALL DUE MEDS GIVEN ORDERED. PT KEPT CLEAN AND COMFORTABLE. ALL SAFETY MEASURES IMPLEMENTED. ENDORSED TO MORNING SHIFT RN FOR MAL.
[2021-07-15] MEDS: PANTOPRAZOLE 40 MG VIAL IV SCH (08:08)
[2021-07-15] MEDS: DEXAMETHASONE SOD PHOSPHATE 10 MG/ML VIAL IV SCH (08:08)
[2021-07-15] MEDS: CEFEPIME 2 GM in IV D5W 100 ML IV SCH (08:08)
[2021-07-15 08:34] LABS: ABG BASE EXCESS -8.3 mmol/L; ABG OXYGEN SATURATION 95.9 % (92.0-98.5); ABG PCO2 35.3 mmHg (35.0-45.0); ABG PH 7.305 (7.350-7.450); ABG PO2 84.7 mmHg (75.0-100.0); AaDO2 448.6 mmHg; COHb 0.2 % (0.5-1.5); MetHb 0.3 % (0.0-1.5); O2Hb 95.4 % (94.0-97.0); SITE, ABG Right Radial; VENT MODE, BG AC 30 520 80% +5
[2021-07-15 10:43] LABS: BAND % (MANUAL) 1 % (0.0-5.0); EOSINOPHILS % (MANUAL) 1 % (0-4); LYMPHOCYTES % (MANUAL) 6 % (16-48); MONOCYTES % (MANUAL) 1 % (0-11.0); NEUTROPHILS % (MANUAL) 91 (42-76)
[2021-07-15] MEDS: FENTANYL CITRAT IV 2,500 MCG in IV NS 0.9% 200 ML IV PRN (10:44)
[2021-07-15 10:52] LABS: ALBUMIN 0.6 g/dL (3.4-5.0)
[2021-07-15] MEDS: HEPARIN INFUSION/D5W 500 ML IV PRN ×2 (16:36→16:44)
[2021-07-15] MEDS: MIDAZOLAM HCL 100 MG in IV NS 0.9% 80 ML IV PRN (18:47)
--- NOTE | 2021-07-15 19:50 | NUR ---
RN NOTE PT RECEIVED IN BED CURRENTLY RECEIVING DIALYSIS. ENDORSED BY DAY SHIFT THAT HEPARIN DRIP WAS RESTARTED AT 136 UNITS/HR, BUT PER PROTOCOL AND CLERK ENTRY LEVELBEKAH WELLS, INFUSION RATE SHOULD BE INCREASED BY 150 UNITS/HR AND BOLUS WAS TO BE GIVEN. PT HEPARIN DRIP NOW INFUSING AT 1300 UNITS/HR AND WILL CONTINUE TO MONITOR FOR ANY CHANGES IN PTT AND SIGNS OF ADVERSE REACTIONS. PT IS CURRENTLY SEDATED TOLERATING VENT SETTINGS WELL. ON SENIOR IT BUSINESS ANALYST SHOWING NSR. CRYSTAL CATH NOTED. GLUCERNA 1.2 RUNNING AT 20 CC/HR. TOLERATING WELL WITH NO RESIDUAL NOTED. IV ACCESS NOTED ON RIGHT UPPER ARM PICC LINE AND LEFT UPPER ARM ML. LINE FLUSHED, PATENT, AND INTACT WITH NO SIGNS OF INFILTRATION. MARIVEL DRIP RUNNING AT 1.4 MCG/KG/HR, NA BICARB WITH RUNNING 80CC/HR, FENTANYL AT 100MCG/KG/HR, AND VERSED 3 MG/ML/HR . ALL SAFETY MEASURES IMPLEMENTED. WILL CONTINUE TO MONITOR AND ASSESS FOR ANY CHANGES DURING SHIFT.
--- NOTE | 2021-07-15 20:09 | NUR ---
RN NOTE DOCUMENT ERROR ON IV SPREADSHEET 07/14 REGARDING FENTANYL DRIP. RUNNING AT 10 ML/HR ACCIDENTALLY ADDED ANOTHER 0 TO INTAKE. INTAKE WAS 10ML AND INFUSION RATE WAS 10ML/HR. ADJUSTED IN SPREADSHEET. UZIEL PHARMACIST AWARE.
[2021-07-15] MEDS: INSULIN GLARGINE, 100 UNIT/ML CARTRIDGE SQ SCH (23:22)
--- NOTE | 2021-07-15 23:38 | NUR ---
RN NOTE PT PTT 62.8. NO CHANGES PER PROTOCOL. WILL CONTINUE TO MONITOR.
[2021-07-16] VITALS (96 sets, daily range): BP systolic 66–144; BP diastolic 38–75
[2021-07-16] MEDS: Sodium Bicarbonate 50 MEQ in IV 1/2NS 1000 ML 1,000 ML IV SCH ×2 (02:00→14:33)
[2021-07-16] MEDS: PHENYLEPHRINE 100 MG in IV NS 0.9% 240 ML IV PRN ×2 (02:31→18:06)
[2021-07-16 05:47] LABS: BASOPHILS % (AUTO) 0.1 % (0.0-2.0); EOSINOPHILS % (AUTO) 0.2 % (0.0-6.0); HEMATOCRIT 30 % (39-51); HEMOGLOBIN 9.8 g/dL (13.5-17.5); LYMPHOCYTES # (AUTO) 0.9 K/uL (0.8-4.8); LYMPHOCYTES % (AUTO) 4.5 % (20.0-44.0); MEAN CORPUSCULAR HGB CONC 33 g/dl (31.0-36.0); MEAN CORPUSCULAR VOLUME 85 fL (80-96); MONOCYTES # (AUTO) 0.2 K/uL (0.1-1.30); MONOCYTES % (AUTO) 1.2 % (2.0-12.0); NEUTROPHILS # (AUTO) 19.6 K/uL (1.8-8.9); PLATELET COUNT (AUTO) 225 K/uL (150-450); RED BLOOD CELL COUNT(AUTO) 3.56 MIL/uL (4.5-6.0); WHITE BLOOD COUNT (AUTO) 20.9 K/uL (4.3-11.0)
[2021-07-16] MEDS: BLOOD SUGAR DIAGNOSTIC 1 EACH STRIP IN SCH ×3 (05:57→17:26)
[2021-07-16] MEDS: INSULIN REGULAR, HUMAN 100 UNIT/ML 3 ML VIAL SQ PRN ×3 (05:58→17:27)
[2021-07-16 06:01] LABS: ALANINE AMINOTRANSFERASE 34 U/L (12-78); ALKALINE PHOSPHATASE 139 U/L (46-116); ASPARTATE AMINOTRANSFERASE 70 U/L (15-37); BILIRUBIN,TOTAL 0.2 mg/dL (0.2-1.0); CALCIUM, SERUM 7.1 mg/dL (8.5-10.1); CARBON DIOXIDE 22 mmol/L (21-32); CHLORIDE 104 mmol/L (98-107); CREATININE 2.4 mg/dL (0.6-1.3); GLUCOSE 144 mg/dL (74-106); POTASSIUM 4.2 mmol/L (3.5-5.1); SODIUM SERUM 137 mmol/L (136-145); TOTAL PROTEIN, SERUM 5.2 g/dL (6.4-8.2); UREA NITROGEN, BLOOD 61 mg/dL (7-18)
[2021-07-16 06:15] LABS: ALBUMIN 0.6 g/dL (3.4-5.0)
--- NOTE | 2021-07-16 06:50 | NUR ---
RN NOTE PT PTT 78.3. WILL ADJUST PER HEPARIN DRIP PROTOCOL.
--- NOTE | 2021-07-16 07:20 | NUR ---
RN NOTE PT HEPARIN DRIP NOW INFUSING AT 1150 UNITS/HR DUE TO RECENT PTT OF 78.3 AND ADJUSTMENT PER HEPARIN DRIP PROTOCOL. PT IS CURRENTLY SEDATED TOLERATING VENT SETTINGS WELL. ON STUDENT SERVICES COORDINATOR SHOWING NSR. GLUCERNA 1.2 RUNNING AT 20 CC/HR. TOLERATING WELL WITH NO RESIDUAL NOTED. IV ACCESS NOTED ON RIGHT UPPER ARM PICC LINE AND LEFT UPPER ARM ML. LINE FLUSHED, PATENT, AND INTACT WITH NO SIGNS OF INFILTRATION. MARIVEL DRIP RUNNING AT 1.3 MCG/KG/HR, NA BICARB RUNNING AT 80CC/HR, FENTANYL AT 100MCG/KG/HR, AND VERSED 3 MG/ML/HR . ALL DUE MEDS GIVEN ORDERED. PT KEPT CLEAN AND COMFORTABLE. ALL SAFETY MEASURES IMPLEMENTED. ENDORSED TO MORNING SHIFT RN FOR MAL.
[2021-07-16] MEDS: PANTOPRAZOLE 40 MG VIAL IV SCH (08:40)
[2021-07-16] MEDS: DEXAMETHASONE SOD PHOSPHATE 10 MG/ML VIAL IV SCH (08:40)
[2021-07-16] MEDS: CEFEPIME 2 GM in IV D5W 100 ML IV SCH (08:56)
--- NOTE | 2021-07-16 09:30 | NUR ---
RN NOTES PT FOUND SEMI LAWLER'S POSITION DISPLAYING NO S/S OF DISTRESS, FLACC = 0, RIKERS = 3, BILATERAL RISE AND FALL OF THE CHEST OBSERVED. RESIDUAL MEASURED, APPROX 80 ML. R UA PICC IS PATIENT AND INTACT. L UA ML IS PATIENT AND INTACT. NO ACTIVE BLEEDING OBSERVED. CRYSTAL CATHETER IS BELOW PATIENT DRAINING BY GRAVITY. VSS, RN WILL TREAT AND MONITOR THROUGHOUT SHIFT. SAFETY MEASURES IN PLACE, BED LOCKED AND IN LOWEST POSITION, SIDE RAILS UPX2, CALL LIGHT WITHIN REACH, BED ALARM ARMED. Addendum: 07/16/21 at 1137 by LISA RYAN RN BILATERAL SOFT RESTRAINTS APPLIED, CAP REFILL < 3 SECONDS AND PULSES PALPATED BILATERALLY.
[2021-07-16 10:39] LABS: BAND % (MANUAL) 6 % (0.0-5.0); LYMPHOCYTES % (MANUAL) 4 % (16-48); MONOCYTES % (MANUAL) 2 % (0-11.0); NEUTROPHILS % (MANUAL) 88 (42-76)
[2021-07-16] MEDS: FENTANYL CITRAT IV 2,500 MCG in IV NS 0.9% 200 ML IV PRN (11:46)
[2021-07-16] MEDS: GLUCERNA 1.2 1,000 ML BOTTLE NG PRN (13:04)
--- NOTE | 2021-07-16 14:51 | NUR ---
CRITICAL LAB LAB CALLED AND REPORTED CRITICAL FINDING, APTT IS 150.8. RN WILL INFORM SHOPFITTER
--- NOTE | 2021-07-16 15:00 | NUR ---
MD COMMUNICATION RN INFORMED CONCRETE LAYER OF APTT GAVE ORDER: HOLD FOR 2 HOURS THEN RESUME PROTOCOL. RN ACKNOWLEDGED AND WILL EXECUTE.
[2021-07-16] MEDS: HEPARIN INFUSION/D5W 500 ML IV PRN (18:56)
--- NOTE | 2021-07-16 19:30 | NUR ---
RN NOTES PT FOUND SEMI LAWLER'S POSITION DISPLAYING NO S/S OF DISTRESS, FLACC = 0, RIKERS = 3, BILATERAL RISE AND FALL OF THE CHEST OBSERVED. RESIDUAL MEASURED, 0 ML. R UA PICC IS PATIENT AND INTACT. L UA ML IS PATIENT AND INTACT. NO ACTIVE BLEEDING OBSERVED. BILATERAL SOFT RESTRAINTS APPLIED, CAP REFILL < 3 SECONDS AND PULSES PALPATED BILATERALLY. CRYSTAL CATHETER IS BELOW PATIENT DRAINING BY GRAVITY. SBAR AND REPORT GIVEN TO WRECKING SUPERVISOR RN, ALL QUESTIONS ANSWERED. SAFETY MEASURES IN PLACE, BED LOCKED AND IN LOWEST POSITION, SIDE RAILS UPX2, CALL LIGHT WITHIN REACH, BED ALARM ARMED. PT ENDORSED IN STABLE CONDITION FOR MAL.
--- NOTE | 2021-07-16 19:33 | NUR ---
Received patient orally intubated with 7.5 ETT secured at 26cm lip line on vent with the settings of AC 30 520 70% +10. Suctioned small amount of thick yellow secretions. Vent plugged into red outlet, alarms on and audible. Ambu bag at bedside. No respiratory distress at this time. Will continue to monitor patient throughout shift.
--- NOTE | 2021-07-16 20:10 | NUR ---
ICU/RESEARCH HOME ECONOMIST STABLE BLOOD PRESSURE, NOTIFED CHARGE NURSE WHO THEN DECREASED THE MARIVEL DOWN. WILL CONTINUE TO MONITOR THIS PT AND HIS BLOOD PRESSURE. MARIVEL 1.5MCG TO 1.4MCG.
--- NOTE | 2021-07-16 20:30 | NUR ---
ICU/TOWEL WEAVER STABLE BLOOD PRESSURE, NOTIFED CHARGE NURSE WHO THEN DECREASED THE MARIVEL DOWN. WILL CONTINUE TO MONITOR THIS PT AND HIS BLOOD PRESSURE. MARIVEL 1.4MCG TO 1.3MCG.
--- NOTE | 2021-07-16 22:15 | NUR ---
ICU/PLANTING MATERIAL REMOVER STABLE BLOOD PRESSURE, NOTIFED CHARGE NURSE WHO THEN DECREASED THE MARIVEL DOWN. WILL CONTINUE TO MONITOR THIS PT AND HIS BLOOD PRESSURE. MARIVEL 1.3MCG TO 1.2MCG.
[2021-07-16] MEDS: INSULIN GLARGINE, 100 UNIT/ML CARTRIDGE SQ SCH (22:30)
[2021-07-16] MEDS: MIDAZOLAM HCL 100 MG in IV NS 0.9% 80 ML IV PRN (22:39)
[2021-07-17] VITALS (94 sets, daily range): BP systolic 71–134; BP diastolic 46–70
--- NOTE | 2021-07-17 00:10 | NUR ---
ICU/SURVEY WORKERS SUPERVISOR PTT WAS 60.4, ON THE NON ACS THERE IS NO CHANGES ALONG WITH A MORNING PTT, TO CHECK LEVEL. CLERK SECRETARY NURSE MADE AWARE.
[2021-07-17] MEDS: BLOOD SUGAR DIAGNOSTIC 1 EACH STRIP IN SCH ×4 (00:19→17:52)
--- NOTE | 2021-07-17 00:20 | NUR ---
ICU/LEARNING AND DEVELOPMENT ANALYST STABLE BLOOD PRESSURE, NOTIFED CHARGE NURSE WHO THEN DECREASED THE MARIVEL DOWN. WILL CONTINUE TO MONITOR THIS PT AND HIS BLOOD PRESSURE. MARIVEL 1.2MCG TO 1.1MCG.
[2021-07-17] MEDS: INSULIN REGULAR, HUMAN 100 UNIT/ML 3 ML VIAL SQ PRN (00:21)
[2021-07-17] MEDS: Sodium Bicarbonate 50 MEQ in IV 1/2NS 1000 ML 1,000 ML IV SCH (02:18)
--- NOTE | 2021-07-17 03:30 | NUR ---
ICU/LANDSCAPE SUPERVISOR STABLE BLOOD PRESSURE, NOTIFED CHARGE NURSE WHO THEN DECREASED THE MARIVEL DOWN. WILL CONTINUE TO MONITOR THIS PT AND HIS BLOOD PRESSURE. MARIVEL 1.1MCG TO 1.0MCG.
--- NOTE | 2021-07-17 05:10 | NUR ---
ICU/ADVANCED PRACTICE REGISTERED NURSE STABLE BLOOD PRESSURE, NOTIFED CHARGE NURSE WHO THEN DECREASED THE MARIVEL DOWN. WILL CONTINUE TO MONITOR THIS PT AND HIS BLOOD PRESSURE. MARIVEL 1.0MCG TO 0.9MCG.
[2021-07-17 05:40] LABS: BASOPHILS % (AUTO) 0.2 % (0.0-2.0); EOSINOPHILS % (AUTO) 0.2 % (0.0-6.0); HEMATOCRIT 27 % (39-51); HEMOGLOBIN 8.9 g/dL (13.5-17.5); LYMPHOCYTES # (AUTO) 0.8 K/uL (0.8-4.8); MEAN CORPUSCULAR HGB CONC 33 g/dl (31.0-36.0); MEAN CORPUSCULAR VOLUME 84 fL (80-96); MONOCYTES # (AUTO) 0.2 K/uL (0.1-1.30); MONOCYTES % (AUTO) 1.2 % (2.0-12.0); NEUTROPHILS # (AUTO) 14.8 K/uL (1.8-8.9); NEUTROPHILS % (AUTO) 93.4 % (43.0-81.0); PLATELET COUNT (AUTO) 207 K/uL (150-450); RED BLOOD CELL COUNT(AUTO) 3.25 MIL/uL (4.5-6.0); WHITE BLOOD COUNT (AUTO) 15.9 K/uL (4.3-11.0)
--- NOTE | 2021-07-17 05:45 | NUR ---
ICU/MOLDER SHOULDER PAD HIGH RESIDUALS OF 85ML FOUND FROM TUBE FEEDING. CURRENTLY FEEDING IS GOING AT 30ML/HR, THIS WAS DROPPED DOWN TO 15ML. WILL CONTINUE TO MONITOR THE RESIDUALS.
--- NOTE | 2021-07-17 05:50 | NUR ---
ICU/TOOL ROOM GEAR MACHINE OPERATOR THIS MORNING BLOOD SUGAR WAS 122, THERE IS NO COVERAGE FOR THIS. WILL CONTINUE TO MONITOR THIS PT'S SUGARS ORDERED.
[2021-07-17 06:25] LABS: CALCIUM, SERUM 6.9 mg/dL (8.5-10.1); CARBON DIOXIDE 22 mmol/L (21-32); CHLORIDE 101 mmol/L (98-107); CREATININE 2.6 mg/dL (0.6-1.3); GLUCOSE 132 mg/dL (74-106); MAGNESIUM 1.9 mg/dL (1.8-2.4); PHOSPHORUS 4.5 mg/dL (2.5-4.9); SODIUM SERUM 134 mmol/L (136-145); UREA NITROGEN, BLOOD 60 mg/dL (7-18)
--- NOTE | 2021-07-17 06:28 | NUR ---
ICU/STAFF ELECTRICAL ENGINEER PTT IS 77.7 PER NON ACS, THE DRIP WAS DECREASED BY 150UNITS TO NOW 1000 UNITES. NEXT PTT IS FOR NOON.
--- NOTE | 2021-07-17 07:00 | NUR ---
RN NOTES RECEIVED PT ON BED, INTUBATED , SEDATED ON VERSED AND FENTANYL , TOLERATING VENT SETTING WELL, O2 SAT WNL,, CRYSTAL DRAINING TO GRAVITY, OG TUBE FEEDING RUNNING AT 15 CC /HR DUE TO HIGH RESIDUAL , MARIVEL AT .9 MCG/KG/MIN RUNNING FOR BP SUPPORT, BICARB DRIP AT 80CC/HR RUNNING , HEPARIN GTT AT 1000 U/HR , SR UP x3, CALL LIGHT WITHIN EASY REACH, BED LOCKED AND IN LOWEST POSITION , CONTINUE TO MONITOR .
[2021-07-17 07:19] LABS: ALANINE AMINOTRANSFERASE 30 U/L (12-78); ALKALINE PHOSPHATASE 101 U/L (46-116); ASPARTATE AMINOTRANSFERASE 64 U/L (15-37); BILIRUBIN,TOTAL 0.2 mg/dL (0.2-1.0)
[2021-07-17 07:27] LABS: ALBUMIN 0.6 g/dL (3.4-5.0)
--- NOTE | 2021-07-17 07:31 | NUR ---
WOUND CARE CONSULT: REVIEWED CHART, NURSING DOCUMENTATION AND PHOTOS WHICH INDICATE DARK DISCOLORATION TO RT FOOT AND SACRAL DEEP TISSUE INJURY IN EVOLUTION. RECOMMENDATIONS MADE FOR SKIN PROTECTION AND WOUND CARE. RECOMMEND SURGICAL AND DPM CONSULTS. DR FAGAN AND DR CARSON TO BE CALLED THIS AM. PT IS ON REINIER ISOFLEX LOW AIRLOSS BED. PT NOTED TO HAVE MULTIPLE CO-MORBIDITIES INCLUDING RESPIRATORY FAILURE SECONDARY TO COVID 19 PNEUMONIA (CURRENTLY INTUBATED) AND DIABETES. DUE TO MULTIPLE CO-MORBIDITIES, FURTHER SKIN BREAKDOWN MAY BE UNAVOIDABLE. MD IN AGREEMENT WITH PLAN OF CARE.
--- NOTE | 2021-07-17 07:43 | NUR ---
RT NOTE RECEIVED PATIENT ORALLY INTUBATED WITH 7.5 ETT SECURED AT 26 AT THE LIPLINE. PATIENT IS ON MECH VENT WITH SETTINGS PER MD ORDER. MECH VENT SETTINGS: AC, 30, 520, 70%, +10. DINING SERVICE SUPERVISOR DONE. VENT PLUGGED INTO RED OUTLET. ALARMS ON AND WORKING PROPERLY. AMBU BAG AT BEDSIDE. ETT SECURED BY ANCHOR FAST. SUCTIONED SMALL AMOUNTS OF CHAN SECRETIONS. NO SOB NOTED AT THIS TIME. WILL CONTINUE TO MONITOR FOR ANY CHANGES.
[2021-07-17] MEDS: DEXAMETHASONE SOD PHOSPHATE 10 MG/ML VIAL IV SCH (08:31)
[2021-07-17] MEDS: PANTOPRAZOLE 40 MG VIAL IV SCH (08:31)
[2021-07-17] MEDS: CEFEPIME 2 GM in IV D5W 100 ML IV SCH (08:31)
[2021-07-17] MEDS ORDERED: PANTOPRAZOLE 40 MG TABLET.DR PO SCH (09:00)
--- NOTE | 2021-07-17 09:49 | NUR ---
RT NOTE INCREASED FIO2 TO 80% DUE TO DESATURATION. ADEHOLLIH AWARE. WILL MONITOR THE PATIENT FOR ANY CHANGES.
--- NOTE | 2021-07-17 10:00 | NUR ---
RN NOTES 150 CC OF GASTRIC RESIDUAL NOTED, TF TURNED OFF AT THIS TIME
[2021-07-17] MEDS: FENTANYL CITRAT IV 2,500 MCG in IV NS 0.9% 200 ML IV PRN (11:51)
[2021-07-17 13:31] LABS: BAND % (MANUAL) 4 % (0.0-5.0); LYMPHOCYTES % (MANUAL) 6 % (16-48); MONOCYTES % (MANUAL) 1 % (0-11.0); NEUTROPHILS % (MANUAL) 89 (42-76)
--- NOTE | 2021-07-17 14:00 | NUR ---
RN NOTES 200CC OF DARK BROWNISH GASTRIC RESIDUAL NOTED, DR GARCIA NOTIFIED, OB OF GASTRIC FLUID ORDERED, TF STILL OFF , CONTINUE TO MONITOR
[2021-07-17] MEDS: HEPARIN INFUSION/D5W 500 ML IV PRN (15:46)
[2021-07-17] MEDS: PHENYLEPHRINE 100 MG in IV NS 0.9% 240 ML IV PRN (16:26)
--- NOTE | 2021-07-17 18:57 | NUR ---
RN NOTES 160 CC DARK BROWN GASTRIC RESIDUAL NOTED, PT OB POSITIVE IN GASTRIC FLUID, HEPARIN DRIP D/VIRY PER DR GARCIA ORDER .
--- NOTE | 2021-07-17 19:00 | NUR ---
RN NOTES PT REMAINS INTUBATED AND SEDATED, O2 SAT WNL, ET TUBE SUCTIONING DONE PRN ,TF OFF DUE TO HIGH RESIDUAL, PT ON MARIVEL FOR BP SUPPORT, SR UP x3, CALL LIGHT WITHIN EASY REACH, WILL ENDORSE TO PRODUCT ARCHITECT NURSE FOR CONTINUITY OF CARE.
[2021-07-17] MEDS: INSULIN GLARGINE, 100 UNIT/ML CARTRIDGE SQ SCH (22:43)
[2021-07-17 22:48] LABS: BILIRUBIN,URINE NEGATIVE (NEGATIVE); COLOR,URINE YELLOW (YELLOW); LEUKOCYTE ESTERASE ,URINE MODERATE (NEGATIVE); NITRITE, URINE NEGATIVE (NEGATIVE); PROTEIN,URINE 30 mg/dl (NEGATIVE); UGLUCOSE NEGATIVE (NEGATIVE); UROBILINOGEN,URINE 0.2 EU/dL (0.2)
[2021-07-17 23:23] LABS: CREATININE, URINE 26.1 MG/DL (30.0-125.0); URINE TOTAL PROTEIN 200.9 mg/dL (0-11.9)
[2021-07-18] VITALS (91 sets, daily range): BP systolic 84–125; BP diastolic 51–77
[2021-07-18] MEDS: BLOOD SUGAR DIAGNOSTIC 1 EACH STRIP IN SCH ×5 (00:40→23:25)
[2021-07-18] MEDS: MIDAZOLAM HCL 100 MG in IV NS 0.9% 80 ML IV PRN (01:05)
[2021-07-18 05:57] LABS: BASOPHILS % (AUTO) 0.2 % (0.0-2.0); EOSINOPHILS % (AUTO) 0.1 % (0.0-6.0); HEMATOCRIT 26 % (39-51); HEMOGLOBIN 8.5 g/dL (13.5-17.5); LYMPHOCYTES # (AUTO) 0.6 K/uL (0.8-4.8); LYMPHOCYTES % (AUTO) 3.8 % (20.0-44.0); MEAN CORPUSCULAR HGB CONC 33 g/dl (31.0-36.0); MEAN CORPUSCULAR VOLUME 84 fL (80-96); MONOCYTES # (AUTO) 0.2 K/uL (0.1-1.30); MONOCYTES % (AUTO) 1.2 % (2.0-12.0); NEUTROPHILS # (AUTO) 13.9 K/uL (1.8-8.9); NEUTROPHILS % (AUTO) 94.7 % (43.0-81.0); PLATELET COUNT (AUTO) 192 K/uL (150-450); RED BLOOD CELL COUNT(AUTO) 3.09 MIL/uL (4.5-6.0); WHITE BLOOD COUNT (AUTO) 14.6 K/uL (4.3-11.0)
[2021-07-18 06:00] LABS: ALANINE AMINOTRANSFERASE 29 U/L (12-78); ALKALINE PHOSPHATASE 96 U/L (46-116); ASPARTATE AMINOTRANSFERASE 66 U/L (15-37); BILIRUBIN,TOTAL 0.2 mg/dL (0.2-1.0); CARBON DIOXIDE 21 mmol/L (21-32); CHLORIDE 98 mmol/L (98-107); CREATININE 3.2 mg/dL (0.6-1.3); GLUCOSE 131 mg/dL (74-106); PHOSPHORUS 5.9 mg/dL (2.5-4.9); POTASSIUM 4.4 mmol/L (3.5-5.1); SODIUM SERUM 133 mmol/L (136-145); TOTAL PROTEIN, SERUM 5.2 g/dL (6.4-8.2); UREA NITROGEN, BLOOD 75 mg/dL (7-18)
[2021-07-18 06:48] LABS: ALBUMIN 0.6 g/dL (3.4-5.0)
--- NOTE | 2021-07-18 07:10 | NUR ---
RN OPENING NOTES RECEIVED PT IN BED. INTUBATED, TOLERATING VENT SETTING WELL. SEDATED ON VERSED @3 AND FENTANYL @100. CRYSTAL CATH IN PLACE, DRAINING YELLOW COLORED URINE TO GRAVITY. OG TUBE CLAMPED. IV ACCESS ON ORTEGA PICC AND ARACELY ML BOTH INTACT, PATENT AND FLUSHED. MARIVEL @.5. R FEM HD CATH IN PLACE, DRESSING C/D/I. SAFETY MEASURES IMPLEMENTED. CALL LIGHT WITHIN REACH. BED LOCKED AND IN LOWEST POSITION WITH SIDE RAILS UP X3. WILL CONTINUE TO MONITOR .
[2021-07-18] MEDS: CEFEPIME 2 GM in IV D5W 100 ML IV SCH (09:29)
[2021-07-18] MEDS: DEXAMETHASONE SOD PHOSPHATE 10 MG/ML VIAL IV SCH (09:29)
[2021-07-18] MEDS ORDERED: PHARMACY TO CHANGE PO MEDS TO GT/NG XX PRN (10:30)
[2021-07-18] MEDS ORDERED: MAGNESIUM HYDROXIDE 30 ML UDC NG PRN (10:31)
[2021-07-18] MEDS ORDERED: MAG HYDROX/AL HYDROX/SIMETH 30 ML UDC NG PRN (10:31)
[2021-07-18] MEDS ORDERED: ACETAMINOPHEN 650 MG/20.3 ML UDC NG PRN (11:00)
[2021-07-18] MEDS ORDERED: ACETAMINOPHEN 650 MG/20.3 ML UDC GT PRN (11:00)
[2021-07-18] MEDS: INSULIN REGULAR, HUMAN 100 UNIT/ML 3 ML VIAL SQ PRN ×3 (11:49→23:30)
[2021-07-18] MEDS: FENTANYL CITRAT IV 2,500 MCG in IV NS 0.9% 200 ML IV PRN (13:13)
[2021-07-18] MEDS: METOCLOPRAMIDE HCL 10 MG/2 ML VIAL IV SCH ×2 (15:10→22:10)
--- NOTE | 2021-07-18 19:00 | NUR ---
RN NOTE RECEIVED PATIENT IN BED, SEDATED, IN NO S/SX OF ACUTE DISTRESS AT THIS TIME. SATURATION AT 96% ON ET TUBE CONNECTED TO MECHANICAL VENT WITH SETTINGS PRESCRIBED, 7.5/26, AC 30, TV 320, FIO2 80%, PEEP 10, SR ON THE MONITOR, HR IS 70. NOTED ORTEGA PICC, ARACELY MIDLINE, HUBS PATENT AND FLUSHING WELL, AND R FEMORAL HD CATH, NO S/S OF INFECTION. NOTED OG-TUBE IN PLACE, POSITIVE PLACEMENT VERIFIED BY ASPIRATIONAND AUSCULTATION, 20 ML OF OUTPUT NOTED. CRYSTAL CATHETER CONNECTED TO URINE BAG IN PLACE, DRAINING TO A CLOUDY, YELLOW OUTPUT. SAFETY MEASURES IMPLEMENTED. PATIENT BED ALARM IS ON. HEAD OF BED ELEVATED. BED IS LOCKED, IN LOWEST POSITION AND SIDE RAILS UP. WILL CONTINUE TO MONITOR AND REASSESS FOR ANY CHANGES.
--- NOTE | 2021-07-18 19:35 | NUR ---
RN NOTES NO SIGNIFICANT CHANGES THROUGHOUT THE SHIFT. TOLERATING VENT SETTINGS WELL. KEPT CLEAN AND COMFORTABLE. SAFETY MEASURES IN PLACE. ENDORSED TO NIGHT RN FOR MAL.
[2021-07-18 22:45] LABS: RBC,URINE 21-50 /HPF (0-2); WBC,URINE 21-50 /HPF (0-3)
[2021-07-18 22:46] LABS: BACTERIA,URINE Moderate /HPF (None Seen); SQUAMOUS EPITHELIAL CELL,UR Few /HPF (None Seen); YEAST,URINE Hyphal filaments /HPF (None Seen)
[2021-07-18] MEDS ORDERED: ALBUMIN 25% 25 GM in PREMIX 1 EA IV PRN (23:00)
[2021-07-18] MEDS: INSULIN GLARGINE, 100 UNIT/ML CARTRIDGE SQ SCH (23:28)
[2021-07-19] VITALS (97 sets, daily range): BP systolic 85–146; BP diastolic 54–99
[2021-07-19] MEDS: METOCLOPRAMIDE HCL 10 MG/2 ML VIAL IV SCH ×3 (05:06→20:50)
[2021-07-19 05:40] LABS: BASOPHILS % (AUTO) 0.2 % (0.0-2.0); HEMATOCRIT 28 % (39-51); LYMPHOCYTES # (AUTO) 0.4 K/uL (0.8-4.8); LYMPHOCYTES % (AUTO) 2.6 % (20.0-44.0); MEAN CORPUSCULAR HGB CONC 33 g/dl (31.0-36.0); MEAN CORPUSCULAR VOLUME 85 fL (80-96); MONOCYTES # (AUTO) 0.2 K/uL (0.1-1.30); NEUTROPHILS % (AUTO) 96.2 % (43.0-81.0); PLATELET COUNT (AUTO) 167 K/uL (150-450); RED BLOOD CELL COUNT(AUTO) 3.24 MIL/uL (4.5-6.0); WHITE BLOOD COUNT (AUTO) 16.7 K/uL (4.3-11.0)
[2021-07-19] MEDS: GLUCERNA 1.2 1,000 ML BOTTLE NG PRN (05:42)
[2021-07-19 05:46] LABS: ALANINE AMINOTRANSFERASE 31 U/L (12-78); ALKALINE PHOSPHATASE 191 U/L (46-116); ASPARTATE AMINOTRANSFERASE 68 U/L (15-37); BILIRUBIN,TOTAL 0.2 mg/dL (0.2-1.0); CALCIUM, SERUM 6.8 mg/dL (8.5-10.1); CARBON DIOXIDE 20 mmol/L (21-32); CHLORIDE 98 mmol/L (98-107); CREATININE 3.9 mg/dL (0.6-1.3); GLUCOSE 131 mg/dL (74-106); MAGNESIUM 2.2 mg/dL (1.8-2.4); POTASSIUM 5.1 mmol/L (3.5-5.1); SODIUM SERUM 133 mmol/L (136-145); TOTAL PROTEIN, SERUM 5.6 g/dL (6.4-8.2)
[2021-07-19] MEDS: BLOOD SUGAR DIAGNOSTIC 1 EACH STRIP IN SCH ×4 (06:39→23:25)
[2021-07-19 06:51] LABS: ALBUMIN 0.6 g/dL (3.4-5.0); UREA NITROGEN, BLOOD 92 mg/dL (7-18)
--- NOTE | 2021-07-19 07:10 | NUR ---
RN OPENING NOTES RECEIVED PT IN BED. INTUBATED, TOLERATING VENT SETTING WELL. SEDATED ON VERSED @3 AND FENTANYL @100. CRYSTAL CATH IN PLACE, DRAINING YELLOW COLORED URINE TO GRAVITY. OG TUBE CLAMPED. IV ACCESS ON ORTEGA PICC AND ARACELY ML BOTH INTACT, PATENT AND FLUSHED. MARIVEL @.3. R FEM HD CATH IN PLACE, DRESSING C/D/I. SAFETY MEASURES IMPLEMENTED. CALL LIGHT WITHIN REACH. BED LOCKED AND IN LOWEST POSITION WITH SIDE RAILS UP X3. WILL CONTINUE TO MONITOR .
[2021-07-19] MEDS ORDERED: PANTOPRAZOLE 40 MG/PACK PACK NG SCH (07:30)
[2021-07-19] MEDS: PHENYLEPHRINE 100 MG in IV NS 0.9% 240 ML IV PRN (08:04)
[2021-07-19] MEDS: CEFEPIME 2 GM in IV D5W 100 ML IV SCH (08:39)
[2021-07-19] MEDS: DEXAMETHASONE SOD PHOSPHATE 10 MG/ML VIAL IV SCH (08:39)
[2021-07-19] MEDS: MIDAZOLAM HCL 100 MG in IV NS 0.9% 80 ML IV PRN (10:31)
--- NOTE | 2021-07-19 12:00 | NUR ---
RN NOTES BS OF 115, NO INSULIN COVERAGE.
[2021-07-19] MEDS: INSULIN REGULAR, HUMAN 100 UNIT/ML 3 ML VIAL SQ PRN ×2 (12:12→18:19)
[2021-07-19] MEDS: FENTANYL CITRAT IV 2,500 MCG in IV NS 0.9% 200 ML IV PRN (16:14)
--- NOTE | 2021-07-19 18:59 | NUR ---
RN NOTES NO SIGNIFICANT CHANGES THROUGHOUT THE SHIFT. TOLERATING VENT SETTINGS WELL. KEPT CLEAN AND COMFORTABLE. ONGOING HD. SAFETY MEASURES IN PLACE. ENDORSED TO NIGHT RN FOR MAL.
--- NOTE | 2021-07-19 19:15 | NUR ---
HOME STEREO EQUIPMENT INSTALLER PT NOTED TO BE ADEQUATELY SEDATED; PUPILS SLUGGISH. NO RESPONSE TO STIMULI AT THIS TIME; BSWR REMOVED.
[2021-07-19] MEDS: PANTOPRAZOLE 40 MG VIAL IV SCH (20:50)
[2021-07-19] MEDS: INSULIN GLARGINE, 100 UNIT/ML CARTRIDGE SQ SCH (23:25)
[2021-07-20] VITALS (73 sets, daily range): BP systolic 66–117; BP diastolic 47–80
[2021-07-20] MEDS: METOCLOPRAMIDE HCL 10 MG/2 ML VIAL IV SCH ×3 (04:29→22:48)
[2021-07-20 05:30] LABS: BASOPHILS % (AUTO) 0.1 % (0.0-2.0); EOSINOPHILS % (AUTO) 0.1 % (0.0-6.0); HEMATOCRIT 25 % (39-51); HEMOGLOBIN 8.1 g/dL (13.5-17.5); LYMPHOCYTES # (AUTO) 0.5 K/uL (0.8-4.8); LYMPHOCYTES % (AUTO) 3.4 % (20.0-44.0); MEAN CORPUSCULAR HGB CONC 33 g/dl (31.0-36.0); MEAN CORPUSCULAR VOLUME 85 fL (80-96); MONOCYTES # (AUTO) 0.2 K/uL (0.1-1.30); MONOCYTES % (AUTO) 1.1 % (2.0-12.0); NEUTROPHILS # (AUTO) 14.9 K/uL (1.8-8.9); NEUTROPHILS % (AUTO) 95.3 % (43.0-81.0); PLATELET COUNT (AUTO) 137 K/uL (150-450); RED BLOOD CELL COUNT(AUTO) 2.92 MIL/uL (4.5-6.0); WHITE BLOOD COUNT (AUTO) 15.6 K/uL (4.3-11.0)
[2021-07-20] MEDS: BLOOD SUGAR DIAGNOSTIC 1 EACH STRIP IN SCH ×4 (06:14→23:37)
[2021-07-20 06:21] LABS: CALCIUM, SERUM 6.6 mg/dL (8.5-10.1); CARBON DIOXIDE 22 mmol/L (21-32); CHLORIDE 100 mmol/L (98-107); CREATININE 2.9 mg/dL (0.6-1.3); GLUCOSE 79 mg/dL (74-106); MAGNESIUM 2.2 mg/dL (1.8-2.4); POTASSIUM 4.8 mmol/L (3.5-5.1); SODIUM SERUM 134 mmol/L (136-145); UREA NITROGEN, BLOOD 59 mg/dL (7-18)
--- NOTE | 2021-07-20 07:54 | NUR ---
Rn OPENING NOTES Patient received sedated and on mechanical vent setting of ac 30, tv 520, fi02 80% and peep of 10. Patient is noted with heart rate of 60's SINUS RHYTM. Lee cath intact and hanging to gravity. Patient noted with fentanyl running at 100 mcg and versed at 1 mcg. Erick running at 0.5 mcg. HOB kept elevated. Bed is in lowest and locked position. .Will continue to monitor.
[2021-07-20] MEDS: CEFEPIME 2 GM in IV D5W 100 ML IV SCH (08:16)
[2021-07-20] MEDS: PANTOPRAZOLE 40 MG VIAL IV SCH ×2 (08:16→22:48)
[2021-07-20] MEDS: DEXAMETHASONE SOD PHOSPHATE 10 MG/ML VIAL IV SCH (08:16)
[2021-07-20 09:14] LABS: ABG BASE EXCESS -5.2 mmol/L; ABG OXYGEN SATURATION 90.4 % (92.0-98.5); ABG PCO2 33.8 mmHg (35.0-45.0); ABG PH 7.375 (7.350-7.450); AaDO2 470.9 mmHg; COHb 0.1 % (0.5-1.5); MetHb 0.3 % (0.0-1.5); SITE, ABG Right Radial; VENT MODE, BG AC 30 520 80% +10
--- NOTE | 2021-07-20 09:30 | NUR ---
Patient seen by Dr arredondo and siena wheeler's abg results relayed and no changes per MD.
[2021-07-20 09:53] LABS: ABG BASE EXCESS -3.9 mmol/L; ABG OXYGEN SATURATION 88.6 % (92.0-98.5); ABG PCO2 34.2 mmHg (35.0-45.0); ABG PH 7.396 (7.350-7.450); ABG PO2 58.1 mmHg (75.0-100.0); AaDO2 476.4 mmHg; COHb 0.3 % (0.5-1.5); MetHb 0.3 % (0.0-1.5); O2Hb 88.1 % (94.0-97.0); SITE, ABG Right Radial
--- NOTE | 2021-07-20 10:34 | NUR ---
TPN order by Sr Marin. Pharmacy aware.
[2021-07-20] MEDS ORDERED: TPN/PPN PER PHARMACY IV PRN (11:00)
[2021-07-20] MEDS: INSULIN REGULAR, HUMAN 100 UNIT/ML 3 ML VIAL SQ PRN ×3 (12:29→23:42)
[2021-07-20 12:47] LABS: PREALBUMIN 11.3 MG/DL (18.0-35.7)
[2021-07-20 13:07] LABS: ALBUMIN 0.6 g/dL (3.4-5.0)
[2021-07-20] MEDS ORDERED: TPN BAG#1 IV SCH ×2 (14:00→18:00)
--- NOTE | 2021-07-20 16:00 | NUR ---
Per ARSLAN Restrepo patient's picc line in IJ. Picc line removed and new line inserted by ARSLAN Restrepo, Chest xray obtained.
[2021-07-20] MEDS ORDERED: PANTOPRAZOLE 40 MG/PACK PACK NG SCH (17:00)
[2021-07-20] MEDS: FENTANYL CITRAT IV 2,500 MCG in IV NS 0.9% 200 ML IV PRN (17:05)
--- NOTE | 2021-07-20 19:23 | NUR ---
Rn CLOSING NOTES Patient sedated and on mechanical vent setting of ac 30, tv 520, fi02 80% and peep of 10. Patient is noted with heart rate of 80's SINUS RHYTM. Lee cath intact and hanging to gravity with 30 cc output. Patient noted with fentanyl running at 100 mcg and versed at 1 mcg. Erick running at 0.6 mcg. HOB kept elevated. Bed is in lowest and locked position. Endorsed to next shift.
--- NOTE | 2021-07-20 20:00 | NUR ---
METAL CASKET MAKER. INITIAL ASSESSMENT. RECEIVED THE PT REST IN BED. ORALLY INTUBATED, SEDATEDW ITH VERSED AND FENTANYL. ETT 7.5, LIP 26, AC 30,TV 550,FIO2 80%, PEEP 10. SAT 98%. MANAGER PHILOSOPHY SHOWING NSR, IV RT UPPER ARM PICC LINE, LT UPPER ARM MID LINE. RT FEMORAL HD CATH. FENTANYL 100MCG/KG/MIN, VERSED 1MG/H, MARIVEL 1.3 MCG.H, TPN 65ML/H. OGT LOW INTERMITTENT SUCTION. FC PATENT. OLIGURIA. HOB ELEVATED. NPO. RT FOOT NO PULSE. BLACK COLOR TOES, WILL MONITOR.
[2021-07-20] MEDS: INSULIN GLARGINE, 100 UNIT/ML CARTRIDGE SQ SCH (23:41)
[2021-07-21] VITALS (79 sets, daily range): BP systolic 74–130; BP diastolic 47–81
[2021-07-21] MEDS ORDERED: TPN BAG #2 IV SCH ×2 (05:00→09:00)
[2021-07-21] MEDS: PHENYLEPHRINE 100 MG in IV NS 0.9% 240 ML IV PRN ×2 (05:09→22:45)
[2021-07-21 05:15] LABS: CALCIUM, SERUM 6.5 mg/dL (8.5-10.1); CARBON DIOXIDE 20 mmol/L (21-32); CHLORIDE 98 mmol/L (98-107); CREATININE 3.7 mg/dL (0.6-1.3); GLUCOSE 300 mg/dL (74-106); MAGNESIUM 2.1 mg/dL (1.8-2.4); PHOSPHORUS 7.8 mg/dL (2.5-4.9); POTASSIUM 5.7 mmol/L (3.5-5.1); SODIUM SERUM 131 mmol/L (136-145); UREA NITROGEN, BLOOD 79 mg/dL (7-18)
[2021-07-21 05:16] LABS: CHOLESTEROL 157 mg/dL (<200); HDL CHOLESTEROL 15 mg/dL (40-60); LDL 91 mg/dL (0-99); TRIGLYCERIDES 284 mg/dL (30-150)
[2021-07-21] MEDS: METOCLOPRAMIDE HCL 10 MG/2 ML VIAL IV SCH ×3 (05:18→21:25)
[2021-07-21 05:23] LABS: BASOPHILS % (AUTO) 0.2 % (0.0-2.0); HEMATOCRIT 23 % (39-51); HEMOGLOBIN 7.5 g/dL (13.5-17.5); LYMPHOCYTES # (AUTO) 0.5 K/uL (0.8-4.8); LYMPHOCYTES % (AUTO) 3.3 % (20.0-44.0); MEAN CORPUSCULAR HGB CONC 33 g/dl (31.0-36.0); MEAN CORPUSCULAR VOLUME 86 fL (80-96); MONOCYTES # (AUTO) 0.2 K/uL (0.1-1.30); MONOCYTES % (AUTO) 1.4 % (2.0-12.0); NEUTROPHILS # (AUTO) 15.4 K/uL (1.8-8.9); NEUTROPHILS % (AUTO) 95.1 % (43.0-81.0); PLATELET COUNT (AUTO) 149 K/uL (150-450); WHITE BLOOD COUNT (AUTO) 16.2 K/uL (4.3-11.0)
[2021-07-21] MEDS: BLOOD SUGAR DIAGNOSTIC 1 EACH STRIP IN SCH ×4 (06:08→23:01)
[2021-07-21] MEDS: INSULIN REGULAR, HUMAN 100 UNIT/ML 3 ML VIAL SQ PRN ×4 (06:10→23:02)
--- NOTE | 2021-07-21 06:48 | NUR ---
HIGH SCHOOL TEACHER. AM CARE GIVEN. PT IS UNSTABLE FOR REPOSITION. WHILE TURNING DISTRESS NOTED. REMAINING SAME VENTS ETTINGS TOLERATED WELL. SAT 98%. REMAINING SAME FENTANYL AND VERSED RUNNING. WILL MONITOR VITALS.
--- NOTE | 2021-07-21 07:23 | NUR ---
WOUND CARE FOLLOW UP: DISCUSSED SACRAL DEEP TISSUE INJURY WITH RN WHO STATES PT TOO UNSTABLE TO BE TURNED COMPLETELY FOR PHOTO. RECOMMEND CONTINUE PRESENT SKIN PROTECTION AND WOUND TREATMENT WITH SURGICAL FOLLOW UP. PT FOLLOWED BY VASCULAR TEAM FOR LOWER EXTREMITIES. MD IN AGREEMENT WITH PLAN OF CARE.
--- NOTE | 2021-07-21 07:30 | NUR ---
RN NOTES PT FOUND SEMI FOWLERS DISPLAYING NO S/S OF DISTRESS, FLACC = 0, RIKERS = 3, BILATERAL RISE AND FALL OF THE CHEST OBSERVED. INTERMITTENT SUCTIONING CONTINUING, BROWN SUBSTANCE IN RESERVOIR. R UA PICC IS PATIENT AND INTACT, L UA ML IS PATIENT AND INTACT. CRYSTAL CATH IS BELOW PATIENT DRAINING BY GRAVITY. VSS, RN WILL MONITOR AND TREAT THROUGHOUT SHIFT. SAFETY MEASURES IN PLACE, BED LOCKED AND IN LOWEST POSITION, SIDE RAILS UPX2, CALL LIGHT WITHIN REACH, BED ALARM ARMED.
[2021-07-21] MEDS: PANTOPRAZOLE 40 MG VIAL IV SCH ×2 (08:42→21:25)
[2021-07-21] MEDS: DEXAMETHASONE SOD PHOSPHATE 10 MG/ML VIAL IV SCH (08:42)
[2021-07-21] MEDS: CEFEPIME 2 GM in IV D5W 100 ML IV SCH (08:43)
[2021-07-21] MEDS: FENTANYL CITRAT IV 2,500 MCG in IV NS 0.9% 200 ML IV PRN (19:01)
[2021-07-21] MEDS: MIDAZOLAM HCL 100 MG in IV NS 0.9% 80 ML IV PRN (19:07)
--- NOTE | 2021-07-21 19:30 | NUR ---
RN NOTES PT FOUND SEMI FOWLERS DISPLAYING NO S/S OF DISTRESS, FLACC = 0, RIKERS = 3, BILATERAL RISE AND FALL OF THE CHEST OBSERVED. INTERMITTENT SUCTIONING CONTINUING, BROWN SUBSTANCE IN RESERVOIR. R UA PICC IS PATIENT AND INTACT, L UA ML IS PATIENT AND INTACT. CRYSTAL CATH IS BELOW PATIENT DRAINING BY GRAVITY. SBAR AND REPORT GIVEN TO JOINER APPRENTICE RN, ALL QUESTIONS ANSWERED. SAFETY MEASURES IN PLACE, BED LOCKED AND IN LOWEST POSITION, SIDE RAILS UPX2, CALL LIGHT WITHIN REACH, BED ALARM ARMED. PT ENDORSED IN STABLE CONDITION FOR MAL.
--- NOTE | 2021-07-21 20:00 | NUR ---
WATER AND FIRE TECHNICIAN NOTE PT IN BED SEDATED. ON VENT/ETT TOLERATING SETTINGS WELL, NO DISTRESS OR DISCOMFORT NOTED. NO S/S OF PAIN. ON TELE SB HR 55 WITH ELEVATED T WAVE. F/C INTACT AND PATENT. PT WILL BE ON HD TONIGHT. PT IS ON TPN 65 ML/HR, ALSO ON MARIVEL 1.3 MCG, AND FENTANYL 100 MG/HR, VERSED AT 1MG/HR. PT REMAIN SEDATED. PT ON OGT ON LIS. HOB ELEVATED 30 GEGREES. KEPT LOWER EXTS ELEVATED. SIDE RAILS UP X 2 AND CALL LIGTH WITHIN REACH. REPOSITION HIM Q2H. CONTINUE TO MONITOR HIM.
--- NOTE | 2021-07-21 20:20 | NUR ---
LOG ROPER NOTE HD STARTED BY HD NURSE, NO DISTRESS OR DISCOMFORT NOTED. PT IS REMAIN SEDATED.
--- NOTE | 2021-07-21 21:37 | NUR ---
VICE PRESIDENT QUALITY NOTE BLOOD CULTURE RECEIVED FROM [employer] (acquired by [employer]) YEAST, INFORMED MOY GORDON RECEIVED NEW ORDER, ORDER NOTED AND CARRIED OUT.
[2021-07-21] MEDS: INSULIN GLARGINE, 100 UNIT/ML CARTRIDGE SQ SCH (23:01)
[2021-07-21] MEDS ORDERED: FLUCONAZOLE IN NS 100 ML IV ONE (23:53)
[2021-07-22] VITALS (59 sets, daily range): BP systolic 97–153; BP diastolic 52–85
[2021-07-22] MEDS ORDERED: TPN BAG #3 IV SCH
[2021-07-22] MEDS: METOCLOPRAMIDE HCL 10 MG/2 ML VIAL IV SCH ×3 (04:52→21:30)
[2021-07-22 05:07] LABS: CALCIUM, SERUM 6.7 mg/dL (8.5-10.1); CARBON DIOXIDE 22 mmol/L (21-32); CHLORIDE 96 mmol/L (98-107); CREATININE 3.2 mg/dL (0.6-1.3); GLUCOSE 305 mg/dL (74-106); PHOSPHORUS 5.4 mg/dL (2.5-4.9); POTASSIUM 4.5 mmol/L (3.5-5.1); SODIUM SERUM 130 mmol/L (136-145); UREA NITROGEN, BLOOD 74 mg/dL (7-18)
[2021-07-22] MEDS: BLOOD SUGAR DIAGNOSTIC 1 EACH STRIP IN SCH ×4 (05:37→23:14)
[2021-07-22] MEDS: INSULIN REGULAR, HUMAN 100 UNIT/ML 3 ML VIAL SQ PRN ×4 (05:58→23:21)
--- NOTE | 2021-07-22 06:19 | NUR ---
EMPLOYEE HEALTH NURSE NOTE PT IN BED SEDATED, NO DISTRESS OR DISCOMFORT NOTED. TOLERATING VENT SETTINGS WELL. ALL NEEDS ATTENDED. F/C INTACT AND PATENT DRAINING YELLOWISH COLOR URINE. PT HAD HD LAST NIGHT AND 1.5 L OUTPUT PER HD NURSE. REPOSITION HIM Q2H, KEPT HIM DRY AND CLEAN. WILL ENDORSE TO DAY SHIFT NURSE FOR CONTINUE TO CARE.
[2021-07-22 08:35] LABS: ABG BASE EXCESS -5.6 mmol/L; ABG OXYGEN SATURATION 97.4 % (92.0-98.5); ABG PCO2 35.1 mmHg (35.0-45.0); ABG PH 7.357 (7.350-7.450); ABG PO2 98.4 mmHg (75.0-100.0); AaDO2 435.2 mmHg; COHb 0.5 % (0.5-1.5); MetHb 0.3 % (0.0-1.5); O2Hb 96.6 % (94.0-97.0); SITE, ABG Right Femoral
[2021-07-22] MEDS: DEXAMETHASONE SOD PHOSPHATE 10 MG/ML VIAL IV SCH (08:41)
[2021-07-22] MEDS: CEFEPIME 2 GM in IV D5W 100 ML IV SCH (08:41)
[2021-07-22] MEDS: PANTOPRAZOLE 40 MG VIAL IV SCH ×2 (08:41→21:30)
--- NOTE | 2021-07-22 10:03 | NUR ---
SS consult: SS consult requested again for family contact. JAIRO Rodriguez left pt.'s son,Dylan [phone] a voicemail with SW call back number on 07/11/2021. No call from son at this time. This SW called Dylan [phone] today and number is now disconnected. JAIRO called caregiver,[Jayla [phone]] and left a voicemail with call back number. JAIRO will attempt to gather alternate family contact. SW will remain available as needed.
--- NOTE | 2021-07-22 10:36 | NUR ---
SS Note: JAIRO spoke with pt's nurse, Toño who stated that the son, Dylan' number [phone] was answered by someone named Leonila who stated she did not know an Dylan. Possibly th wrong number. JAIRO made APS report #[phone] for possible abandonment. At this time the pt. is unable to make medical decisions and there is no responsible alliance party to make decision on behalf of the pt. JAIRO will remain available as needed.
--- NOTE | 2021-07-22 12:25 | NUR ---
JAIRO received call from caregiver,[Jayla [phone]] stating that sonDylan' correct phone number is [phone]. JAIRO called Dylan at [phone] and spoke with him to gather collateral information. Dylan told me the pt. has Hx. of Schizophrenia and battles with remaining compliant with his medication. Dylan was venting regarding difficulties of caretaking for pt. who is non compliant with medication. SW validated his struggle and provided encouragement. Dylan stated pt. has refused for son to be POA and son has chosen not to file for conservatorship as pt. has always disapproved. Dylan seems to have caregiver burnout. JAIRO will be available to assist with safe & proper discharge planning and provide the son with caregiver resources. JAIRO informed Dylan that at this time the pt. is unable to make medical decisions for himself and nursing staff will be calling him to get verbal consent for Tx. Dylan expressed understanding and is agreeable. JAIRO relayed information to pt.'s nurse, Toño.
[2021-07-22] MEDS ORDERED: TPN BAG #4 IV SCH (15:25)
[2021-07-22] MEDS: FENTANYL CITRAT IV 2,500 MCG in IV NS 0.9% 200 ML IV PRN (17:47)
[2021-07-22] MEDS: MIDAZOLAM HCL 100 MG in IV NS 0.9% 80 ML IV PRN (17:48)
[2021-07-22] MEDS: PHENYLEPHRINE 100 MG in IV NS 0.9% 240 ML IV PRN (19:09)
--- NOTE | 2021-07-22 19:14 | NUR ---
RN NOTES PT FOUND SEMI FOWLERS DISPLAYING NO S/S OF DISTRESS, FLACC = 0, RIKERS = 3, BILATERAL RISE AND FALL OF THE CHEST OBSERVED. INTERMITTENT SUCTIONING CONTINUING, BROWN SUBSTANCE IN RESERVOIR. R UA PICC IS PATIENT AND INTACT, L UA ML IS PATIENT AND INTACT. CRYSTAL CATH IS BELOW PATIENT DRAINING BY GRAVITY. SBAR AND REPORT GIVEN TO REAL TIME OPERATOR RN, ALL QUESTIONS ANSWERED. SAFETY MEASURES IN PLACE, BED LOCKED AND IN LOWEST POSITION, SIDE RAILS UPX2, CALL LIGHT WITHIN REACH, BED ALARM ARMED. PT ENDORSED IN STABLE CONDITION FOR MAL.
--- NOTE | 2021-07-22 20:00 | NUR ---
NURSE PRACTITIONER PHYSICIANS ASSISTANT NOTE PT IN BED SEDATED. ON VENT/ETT TOLERATING SETTINGS WELL. NO DISTRESS OR DISCOMFORT NOTED. NO S/S OF PAIN NOTED. ON TELE SR/SB HR 60. F/C INTACT AND PATENT NO OUTPUT AT THIS TIME. PT REMAIN ON NPO. OGT WITH LIS CONTINUES. RT FOOT WITH GANGRENE KEPT BILATERL FEET ELEVATED ON PILLOWS. MARIVEL, FENTANYL, VERSED AND TPN INFUSING ORDERED. NO S/S OF INFILTRATION NOTED. VSS. REPOSITION HIM FOR SKIN AND COMFORT MEASURES. SIDE RAILS UP X 3. CONTINUE TO MONITOR HIM.
[2021-07-22] MEDS: FLUCONAZOLE IN NS 100 MG in PREMIX 1 EA IV SCH ×2 (21:30)
[2021-07-22] MEDS: INSULIN GLARGINE, 100 UNIT/ML CARTRIDGE SQ SCH (23:22)
[2021-07-23] VITALS (58 sets, daily range): BP systolic 83–163; BP diastolic 50–84
--- NOTE | 2021-07-23 05:00 | NUR ---
STEEL DIVISION SUPERVISOR NOTE PT NOTED WITH O2 SAT 88%, RT AT BED SIDE. FIO2 CHANGED BACK UP TO 70%. O2 SAT CAME BACK UP TO 98%.
[2021-07-23] MEDS: METOCLOPRAMIDE HCL 10 MG/2 ML VIAL IV SCH ×3 (05:06→20:53)
[2021-07-23] MEDS: BLOOD SUGAR DIAGNOSTIC 1 EACH STRIP IN SCH ×4 (05:51→23:30)
[2021-07-23] MEDS: INSULIN REGULAR, HUMAN 100 UNIT/ML 3 ML VIAL SQ PRN ×4 (06:00→23:29)
[2021-07-23 06:16] LABS: CALCIUM, SERUM 6.4 mg/dL (8.5-10.1); CARBON DIOXIDE 18 mmol/L (21-32); CHLORIDE 93 mmol/L (98-107); CREATININE 3.6 mg/dL (0.6-1.3); MAGNESIUM 1.9 mg/dL (1.8-2.4); PHOSPHORUS 5.5 mg/dL (2.5-4.9); POTASSIUM 4.6 mmol/L (3.5-5.1); SODIUM SERUM 125 mmol/L (136-145)
[2021-07-23 06:28] LABS: GLUCOSE 358 mg/dL (74-106); UREA NITROGEN, BLOOD 90 mg/dL (7-18)
--- NOTE | 2021-07-23 06:49 | NUR ---
MARKETING UNDERWRITER NOTE PT IN BED SEDATED. NO DISTRESS OR DISCOMFORT NOTED. TPN, VERSED, FENTANYL AND MARIVEL INFUSING ORDERED. NO S/S OF INFILTRATION NOTED. F/C INTACT AND PATENT DRAINING CLOUDY URINE. REPOSITION HIM Q2H, ALL NEEDS ATTENDED. PT TOLERATING VENT SETTINGS WELL. WILL ENDORSE TO DAY SHIFT NURSE FOR CONTINUE TO CARE.
[2021-07-23] MEDS ORDERED: TPN BAG #5 IV SCH (06:50)
[2021-07-23] MEDS: CEFEPIME 2 GM in IV D5W 100 ML IV SCH (09:31)
[2021-07-23] MEDS: DEXAMETHASONE SOD PHOSPHATE 10 MG/ML VIAL IV SCH (09:39)
[2021-07-23] MEDS: PANTOPRAZOLE 40 MG VIAL IV SCH ×2 (09:40→20:53)
--- NOTE | 2021-07-23 13:00 | NUR ---
AUTOMATIC GLUING MACHINE OPERATOR SPOKE WITH SON HEATH ([phone]) BY PHONE. UPDATED ON PTS CONDITION. HE STATED THAT HE HAD A DIFFICULT RELATIONSHIP WITH HIS FATHER AND THAT PT HAD BEEN REJECTING CARE. HE REPORTED THAT PT HAD LEFT [facility] WHERE HE HAD BEEN STAYING AND HAD RETURNED TO HIS APARTMENT EVEN THOUGH PT WAS STILL UNABLE TO CARE FOR HIMSELF. HE REPORTED THAT PT HAD EVEN TURNED AWAY VISITING NURSES. HE ALSO REPORTED THAT PT WANTED TO " NATURAL ". WILL OBTAIN POLST FROM [facility] WITH THE HELP OF CASE MANAGEMENT/ELECTROLYSIST. WILL CHANGE CODE STATUS TO DNR ONCE POLST OBTAINED AND VERIFIED.
[2021-07-23] MEDS: MIDAZOLAM HCL 100 MG in IV NS 0.9% 80 ML IV PRN ×2 (17:40→17:45)
[2021-07-23] MEDS: FENTANYL CITRAT IV 2,500 MCG in IV NS 0.9% 200 ML IV PRN (17:40)
[2021-07-23] MEDS: PHENYLEPHRINE 100 MG in IV NS 0.9% 240 ML IV PRN (17:43)
--- NOTE | 2021-07-23 19:42 | NUR ---
Patient's first medication was not showing up in emar as given. [employer]als Hand Engraver did a manual entry for same time
--- NOTE | 2021-07-23 19:43 | NUR ---
Rn CLOSING NOTES Patient received sedated and on mechanical vent setting with 02 of 95%. Lee cath intact and hanging to gravity. Patient noted with fentanyl running at 100 mcg and versed at 1 mcg. Erick running at 0.7 mcg. HOB kept elevated.Patient noted with urine output of [address] Rubio in facility and assessed the patient. Patient turned and repositioned q2h and prn. Bed is in lowest and locked position. Endorsed to next shift.
[2021-07-23] MEDS ORDERED: TPN BAG #6 IV SCH (21:00)
[2021-07-23] MEDS: INSULIN GLARGINE, 100 UNIT/ML CARTRIDGE SQ SCH (23:30)
[2021-07-24] VITALS (75 sets, daily range): BP systolic 45–126; BP diastolic 29–91
--- NOTE | 2021-07-24 01:41 | NUR ---
RN NOTE HD PT S/P HD COMPLETED AT THIS TIME, 1L OUT NOTED.
[2021-07-24 05:02] LABS: BASOPHILS % (AUTO) 0.2 % (0.0-2.0); LYMPHOCYTES # (AUTO) 0.7 K/uL (0.8-4.8); MEAN CORPUSCULAR HGB CONC 33 g/dl (31.0-36.0); MEAN CORPUSCULAR VOLUME 85 fL (80-96); MONOCYTES # (AUTO) 0.3 K/uL (0.1-1.30); MONOCYTES % (AUTO) 1.9 % (2.0-12.0); NEUTROPHILS # (AUTO) 16.8 K/uL (1.8-8.9); NEUTROPHILS % (AUTO) 93.9 % (43.0-81.0); RED BLOOD CELL COUNT(AUTO) 2.13 MIL/uL (4.5-6.0); WHITE BLOOD COUNT (AUTO) 17.9 K/uL (4.3-11.0)
[2021-07-24 05:04] LABS: CALCIUM, SERUM 6.4 mg/dL (8.5-10.1); CARBON DIOXIDE 24 mmol/L (21-32); CHLORIDE 94 mmol/L (98-107); CREATININE 2.9 mg/dL (0.6-1.3); GLUCOSE 298 mg/dL (74-106); MAGNESIUM 1.6 mg/dL (1.8-2.4); PHOSPHORUS 4.3 mg/dL (2.5-4.9); POTASSIUM 3.8 mmol/L (3.5-5.1); SODIUM SERUM 129 mmol/L (136-145); UREA NITROGEN, BLOOD 75 mg/dL (7-18)
[2021-07-24] MEDS: METOCLOPRAMIDE HCL 10 MG/2 ML VIAL IV SCH ×2 (05:34→13:00)
[2021-07-24] MEDS: BLOOD SUGAR DIAGNOSTIC 1 EACH STRIP IN SCH ×3 (05:35→18:38)
[2021-07-24] MEDS: INSULIN REGULAR, HUMAN 100 UNIT/ML 3 ML VIAL SQ PRN ×3 (05:45→18:41)
[2021-07-24 06:12] LABS: HEMATOCRIT 18 % (39-51); HEMOGLOBIN 5.9 g/dL (13.5-17.5); PLATELET COUNT (AUTO) 46 K/uL (150-450)
--- NOTE | 2021-07-24 06:58 | NUR ---
CRITICAL LAB HGB 5.9 HCT 18 PLT 46 PER LAB, RAN AGAIN/DRAWN AGAIN CONFIRMED ORDERS FROM LINECASTING MACHINE KEYBOARD OPERATOR SAYRA WONG, 2 UNITS PRBCS AND ORDER FIBROG Addendum: 07/24/21 at 0701 by LIDYA CHAMORRO RN FIBRINOGEN ALSO ORDERED
--- NOTE | 2021-07-24 07:35 | NUR ---
RN NOTE CLOSING AT THIS TIME, PT IS NOT IN DISTRESS. REMAINS SEDATED. AROUSABLE TO LIGHT PAIN. ALL NEEDS ATTENDED, SAFETY MEASURES IN PLACE. CRITICAL LABS NOTED, ORDERS IN PLACE. ENDORSED TO DAY SHIFT RN FOR CONTINUATION OF CARE.
[2021-07-24] MEDS: Magnesium 1GM/D5W 100ML PREMIX 100 ML IV SCH ×2 (08:20→10:49)
[2021-07-24] MEDS: DEXAMETHASONE SOD PHOSPHATE 10 MG/ML VIAL IV SCH (08:20)
[2021-07-24] MEDS: PANTOPRAZOLE 40 MG VIAL IV SCH (08:20)
[2021-07-24] MEDS: CEFEPIME 2 GM in IV D5W 100 ML IV SCH (09:35)
[2021-07-24] MEDS ORDERED: IV NS 0.9% 250 ML IV PRN (10:00)
--- NOTE | 2021-07-24 10:42 | NUR ---
RN SPOKE TO PATIENTS SON HEATH BARNARD AT LENGTH TO GET BLOOD CONSENT AND UPDATE HIM ON HIS DADS CONDITION. HEATH AGREED TO THE BLOOD CONSENT. HEATH STATED HE JUST FOUND OUT YESTERDAY THAT PATIENT IS IN THE HOSPITAL AND UNDERSTANDS HIS CONDITION IS REALLY BAD. HEATH STATED THAT HIS DAD HAD BEEN IN HOSPICE BUT TOOK HIMSELF OUT UNKNOWN AMOUNT OF TIME AGO BECAUSE HE DIDN'T WANT TO BE AT THE FACILITY ANYMORE. HEATH STATED THAT HIS DAD DID NOT TELL HIM TOO MUCH ABOUT HIS MEDICAL CONDITION EXCEPT THAT HE WANTED TO NATURALLY AND THAT HE WOULD BE CREMATED AFTER HE AND THAT THOSE ARRANGEMENTS WERE TAKEN CARE OF. HEATH STATED HE CAN'T FIND ANY PAPERWORK OR DOCUMENTATION REGARDING CREMATION OR MORTUARY INFORMATION. RN INFORMED HEATH THAT SHE WILL PUT A CM ORDER IN SO THE GOLF SALES ASSOCIATE CAN POSSIBLY GIVE HIM A LIST OF CREMATION FACILITIES THAT HE CAN CALL TO FIND OUT WHICH ONE HIS DAD MADE ARRANGEMENTS WITH. HEATH ALSO STATED PT HAS A DAUGHTER WHO WAS NOTIFIED PT IS IN THE HOSPITAL BUT SHE DOES NOT WANT ANYTHING TO DO WITH HIM.
[2021-07-24] MEDS ORDERED: TPN BAG #7 IV SCH (12:25)
[2021-07-24 14:21] LABS: BAND % (MANUAL) 1 % (0.0-5.0); LYMPHOCYTES % (MANUAL) 6 % (16-48); MONOCYTES % (MANUAL) 2 % (0-11.0); NEUTROPHILS % (MANUAL) 91 (42-76)
[2021-07-24] MEDS: PHENYLEPHRINE 100 MG in IV NS 0.9% 240 ML IV PRN (15:08)
[2021-07-24] MEDS: FENTANYL CITRAT IV 2,500 MCG in IV NS 0.9% 200 ML IV PRN (17:58)
--- NOTE | 2021-07-24 18:52 | NUR ---
NO CARDIAC ACTIVITY ON MONITOR, NO PULSE PALPATED X2 MINUTES, NO BLOOD PRESSURE, NO HEART TONES AUSCULTATED, NO SIGNS OF LIFE. TIME OF 1849.
--- NOTE | 2021-07-24 19:13 | NUR ---
RN NOTIFIED PT'S SON HEATH OF PATIENTS . HEATH GAVE PHONE CONSENT TO S[place] [facility] SUPERVISORS NUMBER GIVEN TO HEATH TO NOTIFY WHEN ARRANGEMENTS ARE MADE.
[2021-07-25] MEDS ORDERED: TPN BAG #8 IV SCH (03:50)
--- NOTE | 2021-07-25 09:59 | NUR ---
Cremation & grief resources: JAIRO received consult and called the pt.'s son, Dylan [phone] to provide emotional support. Dylan stated he does not believe the pt. had any arrangements but did know pt. wished to be cremated. JAIRO emailed loss & grief support resources as well as cremation/ resources to . JAIRO provided nursing sup. extension for nay additional questions. Dylan stated he appreciated the support. JAIRO will remain available as needed. Addendum: 07/25/21 at 1008 by VINCENT GILL Homes, Cremation, Burial & Cemetery Resources [place] [id number] [place], [place] [phone] [place] [phone] [facility] [address] [place], [place] [id number] [place] Dils4916 [place], [place] [phone] MEDIN[place], [facility] [id number] [place], [place] [id number] [phone] [facility] [id number] SLaurita Somerset Centeranmol [address]. [place], [place] [phone] [facility] [address] [place], [place] [id number] [place], [place] [phone] [employer] Cremation Specialists of [phone] Cremation Society of [phone] [facility] [facility] , [place], [place] [phone] [facility] [place], [place] [phone] [facility] [id number] [place], [place] [phone] [place] Dxtiasosv26828 [place], [place] [phone] SAMANTHA Joy, Haley/ Khai Roman [id number] [place], [place] [phone] Minh Pan [place] [id number] [place], [place] [id number] [phone] [place] [facility] [facility] [place] [id number] [facility] [place], [place] [phone] [place] Dfglsmyd0206 [place], [place] [phone] [facility] Herbert [id number] [place], [place] [phone] SAMANTHA Joy Kopatogl8652 [facility] [place], [place] [phone] Homes Cremation, Burial & Cemetery Resources [facility] [address] [place], [place] [id number] [phone] [place] [id number] [place], [place] [phone] [facility] [id number] [place], [place] [phone] [place] Mk [address] [place], [place] [address]., 3rd Floor [place], [place] [phone] (fax) SURINDER Lorenz Cremation & Burial [id number] Surinder Spivey. TERRELL Alba [phone] Kate Calderon [id number] Terrell Philip [phone] [phone] Bereavement resources: Bereavement counseling center [phone] [facility] Grief & bereavement program [phone]
== END 2021-07-24 20:44 | DRG 870 ==
LOC: ER 15:15 → TRANSITION 17:55 → ICU 07-09 11:56
PROVIDERS: ADMIT Nurse Practitioner Acute Care; ATTEND Internal Medicine
PROC: 5A1955Z Respiratory Ventilation, Greater than 96 Consecutive Hours (ICD-10-PCS; principal; 2021-07-11)
PROC: 0BH18EZ Insertion of Endotracheal Airway into Trachea, Via Natural or Artificial Opening Endoscopic (ICD-10-PCS; 2021-07-11)
PROC: 02HV33Z Insertion of Infusion Device into Superior Vena Cava, Percutaneous Approach (ICD-10-PCS; 2021-07-12)
PROC: B548ZZA Ultrasonography of Superior Vena Cava, Guidance (ICD-10-PCS; 2021-07-12)
PROC: 05HC33Z Insertion of Infusion Device into Left Basilic Vein, Percutaneous Approach (ICD-10-PCS; 2021-07-14)
PROC: 06HY33Z Insertion of Infusion Device into Lower Vein, Percutaneous Approach (ICD-10-PCS; 2021-07-15)
PROC: 5A1D70Z Performance of Urinary Filtration, Intermittent, Less than 6 Hours Per Day (ICD-10-PCS; 2021-07-15)
PROC: 02HV33Z Insertion of Infusion Device into Superior Vena Cava, Percutaneous Approach (ICD-10-PCS; 2021-07-20)
PROC: B548ZZA Ultrasonography of Superior Vena Cava, Guidance (ICD-10-PCS; 2021-07-20)
PROC: 30233N1 Transfusion of Nonautologous Red Blood Cells into Peripheral Vein, Percutaneous Approach (ICD-10-PCS; 2021-07-24)
DX: A41.89 Other specified sepsis (principal); R65.21 Severe sepsis with septic shock; U07.1 COVID-19; J96.01 Acute respiratory failure with hypoxia; E11.10 Type 2 diabetes mellitus with ketoacidosis without coma; G93.41 Metabolic encephalopathy; N17.0 Acute kidney failure with tubular necrosis; J12.82 Pneumonia due to coronavirus disease 2019; J15.9 Unspecified bacterial pneumonia; E87.0 Hyperosmolality and hypernatremia; E44.0 Moderate protein-calorie malnutrition; E11.52 Type 2 diabetes mellitus with diabetic peripheral angiopathy with gangrene; D75.839 Thrombocytosis, unspecified; E83.39 Other disorders of phosphorus metabolism; E11.22 Type 2 diabetes mellitus with diabetic chronic kidney disease; E86.1 Hypovolemia; E83.51 Hypocalcemia; E78.5 Hyperlipidemia, unspecified; E78.1 Pure hyperglyceridemia; D64.9 Anemia, unspecified; M89.9 Disorder of bone, unspecified; R13.10 Dysphagia, unspecified; Z79.4 Long term (current) use of insulin; N18.9 Chronic kidney disease, unspecified; Z66 Do not resuscitate; E11.51 Type 2 diabetes mellitus with diabetic peripheral angiopathy without gangrene; E11.65 Type 2 diabetes mellitus with hyperglycemia; I70.222 Atherosclerosis of native arteries of extremities with rest pain, left leg; L89.156 Pressure-induced deep tissue damage of sacral region
CPT/HCPCS: 31720; 36415; 36600; 70450-TC; 71045-TC; 74018; 76770-TC; 80048-TC; 80053-TC; 80061-TC; 80076-TC; 80202-TC; 81001; 82010-TC; 82040-TC; 82140-TC; 82272-TC; 82550-TC; 82553; 82570-TC; 82803-TC; 82962-TC; 83605-TC; 83735-TC; 84100-TC; 84134-TC; 84155-TC; 84443-TC; 84478-TC; 84484-TC; 85025-TC; 85027-TC; 85385-TC; 85610-TC; 85730-TC; 86140-TC; 86706; 86850-TC; 87040-TC; 87081-TC; 87086-TC; 87340; 90935-TC; 94002-TC; 94003-TC; 94760-TC; 94762-TC; 94799-TC; A4216; A6253; A6403; C1750; C9113; C9803; G0378; G0480; J0692; J1100; J1450; J1644; J1815; J1956; J2250; J2310; J2370; J2765; J3010; J3370; J3475; J3480; J3490; J7030; J7050; J7060; P9016; P9047; U0003